=== PATIENT | female | born 1955 | race Caucasian/White ===

== ENCOUNTER 2020-06-08 10:35 | Inpatient (IN) ==
--- NOTE | 2020-05-12 15:52 | PAT Medication Instructions ---
Medication Instructions Date of Service May 12, 2020 Home Medications Ca carb-D3-mag [id number] [Caltrate + D3 Plus Minerals] 1 tab PO QAM atorvastatin [Lipitor] 20 mg PO PM celecoxib [Celebrex] 200 mg PO QAM diltiazem HCl [Cardizem CD] 180 mg PO QAM duloxetine [Cymbalta] 120 mg PO QAM gabapentin 300 mg PO TID iron 159 mg PO BID lorazepam [Ativan] 0.5 mg PO BID magnesium 500 mg PO BID multivitamin [One A Day] 1 tab PO QAM omeprazole 40 mg PO QAM rivaroxaban [Xarelto] 20 mg PO PM sumatriptan succinate [Imitrex] 100 mg PO DAILY PRN tizanidine [Zanaflex] 4 mg PO TID vitamin B complex 100 tab PO BID zolpidem [Ambien] 10 mg PO HS ASK your surgeon for instructions celecoxib [Celebrex] 200 mg PO QAM ASK your prescriber and surgeon rivaroxaban [Xarelto] 20 mg PO PM DO NOT take the morning of surgery tizanidine [Zanaflex] 4 mg PO TID vitamin B complex 100 tab PO BID magnesium 500 mg PO BID multivitamin [One A Day] 1 tab PO QAM iron 159 mg PO BID Ca carb-D3-mag [id number] [Caltrate + D3 Plus Minerals] 1 tab PO QAM Take morning of surgery With a small sip of water, OTHERWISE NOTHING TO EAT OR DRINK AFTER MIDNIGHT: sumatriptan succinate [Imitrex] 100 mg PO DAILY PRN (if needed) omeprazole 40 mg PO QAM lorazepam [Ativan] 0.5 mg PO BID gabapentin 300 mg PO TID diltiazem HCl [Cardizem CD] 180 mg PO QAM duloxetine [Cymbalta] 120 mg PO QAM Take evening before surgery atorvastatin [Lipitor] 20 mg PO PM gabapentin 300 mg PO TID iron 159 mg PO BID lorazepam [Ativan] 0.5 mg PO BID magnesium 500 mg PO BID sumatriptan succinate [Imitrex] 100 mg PO DAILY PRN (if needed) tizanidine [Zanaflex] 4 mg PO TID vitamin B complex 100 tab PO BID zolpidem [Ambien] 10 mg PO HS Other Notes If you have any questions please call us at [phone] or [phone] or [phone] or [phone]
--- NOTE | 2020-05-16 13:33 | PAT Medication Instructions ---
Medication Instructions Date of Service May 16, 2020 Home Medications Ca carb-D3-mag [id number] [Caltrate + D3 Plus Minerals] 1 tab PO QAM atorvastatin [Lipitor] 20 mg PO PM celecoxib [Celebrex] 200 mg PO QAM diltiazem HCl [Cardizem CD] 180 mg PO QAM duloxetine [Cymbalta] 120 mg PO QAM gabapentin 300 mg PO TID iron 159 mg PO BID lorazepam [Ativan] 0.5 mg PO BID magnesium 500 mg PO BID multivitamin [One A Day] 1 tab PO QAM omeprazole 40 mg PO QAM rivaroxaban [Xarelto] 20 mg PO PM sumatriptan succinate [Imitrex] 100 mg PO DAILY PRN tizanidine [Zanaflex] 4 mg PO TID vitamin B complex 100 tab PO BID zolpidem [Ambien] 10 mg PO HS ASK your surgeon for instructions celecoxib [Celebrex] 200 mg PO QAM ASK your prescriber and surgeon rivaroxaban [Xarelto] 20 mg PO PM DO NOT take the morning of surgery Ca carb-D3-mag [id number]-Zn [Caltrate + D3 Plus Minerals] 1 tab PO QAM iron 159 mg PO BID magnesium 500 mg PO BID multivitamin [One A Day] 1 tab PO QAM tizanidine [Zanaflex] 4 mg PO TID vitamin B complex 100 tab PO BID Take morning of surgery With a small sip of water, OTHERWISE NOTHING TO EAT OR DRINK AFTER MIDNIGHT: diltiazem HCl [Cardizem CD] 180 mg PO QAM duloxetine [Cymbalta] 120 mg PO QAM gabapentin 300 mg PO TID lorazepam [Ativan] 0.5 mg PO BID omeprazole 40 mg PO QAM sumatriptan succinate [Imitrex] 100 mg PO DAILY PRN (if needed) Take evening before surgery atorvastatin [Lipitor] 20 mg PO PM gabapentin 300 mg PO TID iron 159 mg PO BID lorazepam [Ativan] 0.5 mg PO BID magnesium 500 mg PO BID sumatriptan succinate [Imitrex] 100 mg PO DAILY PRN (if needed) tizanidine [Zanaflex] 4 mg PO TID vitamin B complex 100 tab PO BID zolpidem [Ambien] 10 mg PO HS Other Notes If you have any questions please call us at [phone] or [phone] or [phone] or [phone]
--- NOTE | 2020-05-17 13:04 | Anesthesiology Consultation ---
Date of Service May 17, 2020 Assessment & Plan (1) Encounter for pre-operative examination: Chart Review Chart Review: Pending: Refer to Additional Notes / Consult section (UA, surgeon ordered PCP and cardio clearances and preop Covid testing results ) and Patient seen in Pre Admission Testing - Awaiting UA (pt could not void at PAT appt)- was given orders and supplies and will take urine - [facility] [place] - Awaiting surgeon ordered PCP (05/18) and cardio (05/25) clearance -Did call surgeon's office re: spinal cord stimulator removal in addition to lumbar fusion- per surgeon's office- pt will be getting spinal cord stimulator removal in additional to lumbar fusion surgery. Per PAT appt on 05/17/20, pt denies recent travel. No known Covid positive contacts or Covid related symptoms. Pt did have Covid on 12/20/19- had cough and congestion- symptoms have since resolved. Preop Covid testing scheduled 06/01/20 at [facility] [place]= will await results. Educated on importance of self quarantining, social distancing and wearing mask in public both for the patient and household contacts. Will be fully vaccinated by time of surgery. Teaching & Discussion Pre-Anesthesia Teaching/Discussion Notes: Instructed NPO after midnight before surgery,except medications with 15 cc of water. Medication instructions provided according to the [facility] guidelines. History Surgery Operation Date: 06/08/20 07:45 Proposed Procedures p L3-L5 Decompression and Fusion, Spinal Cord Monitoring - Francisco Oates, Height/Weight Height: 5 ft 2 in Weight: 87.9 kg Allergies Allergy/AdvReac Type Severity Reaction Status Date / Time No Known Allergies Allergy Verified 05/02/20 08:02 Medications Home Medications Medication Instructions Recorded Confirmed Last Taken Ca carb-D3-mag [id number] 1 tab PO QAM 05/02/20 05/02/20 Unknown [Caltrate + D3 Plus Minerals] atorvastatin [Lipitor] 20 mg PO PM 05/02/20 05/02/20 Unknown celecoxib [Celebrex] 200 mg PO QAM 05/02/20 05/02/20 Unknown diltiazem HCl [Cardizem CD] 180 mg PO QAM 05/02/20 05/02/20 Unknown duloxetine [Cymbalta] 120 mg PO QAM 05/02/20 05/02/20 Unknown gabapentin 300 mg PO TID 05/02/20 05/02/20 Unknown iron 159 mg PO BID 05/02/20 05/02/20 Unknown lorazepam [Ativan] 0.5 mg PO BID 05/02/20 05/02/20 Unknown magnesium 500 mg PO BID 05/02/20 05/02/20 Unknown multivitamin [One A Day] 1 tab PO QAM 05/02/20 05/02/20 Unknown omeprazole 40 mg PO QAM 05/02/20 05/02/20 Unknown rivaroxaban [Xarelto] 20 mg PO PM 05/02/20 05/02/20 Unknown sumatriptan succinate [Imitrex] 100 mg PO DAILY PRN 05/02/20 05/02/20 Unknown tizanidine [Zanaflex] 4 mg PO TID 05/02/20 05/02/20 Unknown vitamin B complex 100 tab PO BID 05/02/20 05/02/20 Unknown zolpidem [Ambien] 10 mg PO HS 05/02/20 05/02/20 Unknown Past Medical History Medical History Anxiety Stable with med Atrial fibrillation Dx'ed 1994> follows with Dr. Valentino Brooke Cardiology> Xarelto/Cardizem, no cardioversions - usually brought on by dehydration Chronic back pain Degenerative disc disease GERD (gastroesophageal reflux disease) Well controlled and stable History of COVID-19 DEC 20, 2019 Hyperlipidemia Migraine Nausea and vomiting after administration of anesthetic agent Osteoarthritis Spinal cord stimulator status advised to bring control Exercise / Class Metabolic Activity II 4-5 Yardwork/Stairs/Walk up hill (one flight of stairs - no chest pain or SOB- stays active with etouches classes- uses chair ) Past Family History Family History Mother Diabetes Past Surgical History Surgical History History of adenoidectomy History of bilateral tubal ligation History of carpal tunnel release bilat History of cholecystectomy History of colonoscopy History of dilatation and curettage History of esophagogastroduodenoscopy (EGD) History of laparoscopy History of tonsillectomy History of tooth extraction Hx of bladder repair surgery bladder sling Hx of thumb surgery left for arthritis Past Anesthesia History No Hx of Anesthesia Complications (with exception to PONV) and No Family Hx of Anesthesia Complications (only PONV) History of PONV No Hx of Motion Sickness and History of PONV (relieved with IV anti nausea medi cation ) Social History Smoking Status: Never smoker Do You Dip or Chew Tobacco: No Hx Alcohol Use: No Hx Substance Use: No substance use type: does not use Review of Systems Hx of snoring- occ- no hx of sleep study S/p blood transfusion- around 2017- s/p laparoscopy Patient denies chest pain, shortness of breath, dyspnea on exertion, cough, wheezing, palpitations. No hx of seizures, stroke, [place]. No hx of blood clots. Physical Exam Vital Signs VITALS BP 135/84 P 88 TEMP 98.6 SP02 98% RESP 16 Constitutional no acute distress ENMT Mouth: no TMJ clicking Thyromental Distance: > or= 3.5 Finger Breadths (3.5) Mallampati Class: III Partial top upper plate Neck neck extension not limited Respiratory normal respiratory effort; no respiratory distress Auscultation: lungs clear to auscultation bilaterally; no wheezes Cardiovascular Rate/Rhythm: regular rate and regular rhythm Heart Sounds: no murmur Vessels: no carotid bruit Musculoskeletal Spine: + pain with cervical ROM (mild ) Extremities: extremities normal to inspection Psychiatric Orientation: alert Testing Laboratory Results 05/17/20 13:13 05/17/20 13:13 PT 10.8 Seconds (9.0-12.0) 05/17/20 13:13 INR 1.1 (0.9-1.1) 05/17/20 13:13 APTT 27.1 Seconds (21.0-31.0) 05/17/20 13:13 Blood Type A Positive 05/17/20 13:13 Antibody Screen NEGATIVE 05/17/20 13:13 Electrocardiogram Date: 05/17/20 Findings: + NSR @ (84bpm ) Normal EKG per cardio. Chest X-Ray Date: 05/17/20 Findings: + NAD Spinal stimulator leads overlie the midthoracic spine.
--- NOTE | 2020-05-17 14:11 | XRay Report ---
XR chest Pre-admission PA/Lat HISTORY: 65 years-old Female pat preoperative exam. No acute chest complaints COMPARISON: None TECHNIQUE: PA and lateral views of the chest FINDINGS: Cardiomediastinal and hilar silhouettes are within normal limits. No pneumothorax, pleural effusion, airspace consolidation or overt pulmonary edema. Spinal stimulator leads overlie the midthoracic spin e. Surgical clips of the right upper quadrant abdomen. IMPRESSION: No acute process. ACT 112: Negative or not required by law. The above report was generated using voice recognition software. It may contain grammatical, syntax o r spelling errors. Electronically signed by: Jorge Moseley M.D. 05/17/2020 2:10 PM
[2020-05-17 15:04] LABS: Basophils # (auto) 0.01 K/uL (0-0.2); Basophils % (auto) 0.1 %; Eosinophils # (auto) 0.01 K/uL (0-0.5); Eosinophils % (auto) 0.1 %; Hematocrit (blood only) 39.7 % (37-47); Hemoglobin 12.4 g/dL (12.0-16.0); Immature Granulocytes # (auto) 0.04 K/uL (0.00-0.02); Immature Granulocytes % (auto) 0.5 %; Lymphocytes % (auto) 6.9 %; Mean Corpuscular Hemoglobin 28.4 pg (25-34); Mean Corpuscular Hgb Conc 31.2 g/dL (32-36); Mean Corpuscular Volume 91.1 fL (80-100); Mean Platelet Volume 10.7 fL (7.4-10.4); Monocytes # (auto) 0.23 K/uL (0.11-0.59); Monocytes % (auto) 2.6 %; Neutrophils # (auto) 7.86 K/uL (1.4-6.5); Neutrophils % (auto) 89.8 %; Platelet Count 265 K/uL (130-400); RDW Coefficient of Variation 18.3 % (11.5-14.5); RDW Standard Deviation 61.1 fL (36.4-46.3); Red Blood Count 4.36 M/uL (4.2-5.4); White Blood Count 8.75 K/uL (4.8-10.8)
[2020-05-17 15:19] LABS: INR 1.1 (0.9-1.1); Partial Thromboplastin Time 27.1 Seconds (21.0-31.0); Prothrombin Time 10.8 Seconds (9.0-12.0)
[2020-05-17 15:29] LABS: BUN Creatinine Ratio 20.7 (10-20); Calcium 9.8 mg/dl (8.5-10.1); Creatinine Clr Calc Pharmacy 63.3 ml/min; Est GFR (African American) 77.2; Est GFR (Non-African American) 66.6; Potassium 4.6 mmol/L (3.5-5.1)
--- NOTE | 2020-05-18 14:27 | Electrocardiogram Report ---
Test Reason : Blood Pressure : / mmHG Vent. Rate : 084 BPM Atrial Rate : 084 BPM P-R Int : 140 ms QRS Dur : 084 ms QT Int : 394 ms P-R-T Axes : 060 040 058 degrees QTc Int : 465 ms Normal sinus rhythm Normal ECG No previous ECGs available Confirmed by Beni Man ([id number]) on 05/18/2020 2:26:58 PM Referred By: Francisco Oates Confirmed By:Beni Man
[~2020-06-08 10:35] MED LIST: ACETAMINOPHEN 500 MG TAB PO SCH; CeleBREX 200 MG CAP PO SCH; GABAPENTIN 300 MG CAP PO SCH; LR 15ML/HR IV SCH; ceFAZolin 2000MG 2,000 MG/15 ML SYR IV SCH
[2020-06-08] MEDS ORDERED: fentaNYL citrate 100 MCG/2 ML VIAL ONE ×2 (10:37→12:33)
[2020-06-08] MEDS ORDERED: MIDAZOLAM HCL 1 MG/ML 2ML VIAL ONE (10:37)
--- NOTE | 2020-06-08 11:49 | History & Physical Bridge Note ---
Date of Service June 08, 2020 History & Physical Bridge Note I have examined the patient, reviewed the History & Physical and in the interval since the performance of the History & Physical I have noted the following changes of clinical significance: no changes noted L3 L5 decompression fusion possible L5-S1, possible spinal cord stimulator removal
--- NOTE | 2020-06-08 11:50 | History & Physical Report ---
Date of Service June 08, 2020 Assessment & Plan (1) Neurogenic claudication due to lumbar spinal stenosis: Admission and Anticipated Discharge Date Admission Date: L3-L5 decompression fusion, possible L5-S1, possible spinal cord stimulator removal History of Present Illness Chief Complaint: Back and bilateral leg pain Primary Care Provider: Pari Freed DO This is a 65-year-old female who presents with chronic persistent back and bilateral leg pain. Failing course of nonoperative care she is here for surgical invention. Allergies Allergy/AdvReac Type Severity Reaction Status Date / Time No Known Allergies Allergy Verified 06/08/20 11:28 Home Medications Medication Instructions Recorded Confirmed Type Ca carb-D3-mag [id number] 1 tab PO QAM 05/02/20 06/08/20 History [Caltrate + D3 Plus Minerals] atorvastatin [Lipitor] 20 mg PO PM 05/02/20 06/08/20 History celecoxib [Celebrex] 200 mg PO QAM 05/02/20 06/08/20 History diltiazem HCl [Cardizem CD] 240 mg PO QAM 05/02/20 06/08/20 History duloxetine [Cymbalta] 120 mg PO QAM 05/02/20 05/02/20 History gabapentin 300 mg PO TID 05/02/20 05/02/20 History iron 65 mg PO BID 05/02/20 06/08/20 History lorazepam [Ativan] 0.5 mg PO BID 05/02/20 06/08/20 History magnesium 500 mg PO BID 05/02/20 06/08/20 History multivitamin [One A Day] 1 tab PO QAM 05/02/20 06/08/20 History omeprazole 40 mg PO QAM 05/02/20 05/02/20 History rivaroxaban [Xarelto] 20 mg PO PM 05/02/20 06/08/20 History sumatriptan succinate [Imitrex] 100 mg PO DAILY PRN 05/02/20 06/08/20 History tizanidine [Zanaflex] 4 mg PO TID 05/02/20 06/08/20 History vitamin B complex 100 tab PO BID 05/02/20 06/08/20 History zolpidem [Ambien] 10 mg PO HS 05/02/20 06/08/20 History Past Med/Surg History Medical History (Updated 06/08/20 @ 11:50 by Francisco Oates, ) Anxiety Stable with med Atrial fibrillation Dx'ed 1994> follows with Dr. Valentino Brooke Cardiology> Xarelto/Cardizem, no cardioversions - usually brought on by dehydration Chronic back pain Degenerative disc disease GERD (gastroesophageal reflux disease) Well controlled and stable History of COVID-19 DEC 20, 2019 Hyperlipidemia Hypertension Migraine Osteoarthritis Surgical History History of adenoidectomy History of bilateral tubal ligation History of carpal tunnel release bilat History of cholecystectomy History of colonoscopy History of dilatation and curettage History of esophagogastroduodenoscopy (EGD) History of laparoscopy History of tonsillectomy History of tooth extraction Hx of bladder repair surgery bladder sling Hx of thumb surgery left for arthritis Nausea and vomiting after administration of anesthetic agent Spinal cord stimulator status advised to bring control Family History Mother Diabetes Social History Smoking Status: Never smoker 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); Do You Dip or Chew Tobacco: No; Tobacco Cessation Education Requested by Patient: No Hx Alcohol Use: No Hx Substance Use: No Preferred Language: Chilean Communication Ability: Effective Key Account Director Required: No Beliefs That Will Affect Care: None Current Living Situation: Spouse Other Information That Helps Us Care for You: No Feels Safe at Home: Yes Safety Concerns: Feels Safe At This Time Assistive Devices: Glasses and Hearing Aid - Bilateral Physical Exam Physical Exam: Patient is alert and oriented Heart regular in rhythm Lungs clear to auscultation
[2020-06-08] MEDS ORDERED: BACITRACIN INJ 50,000 UNIT VIAL ONE (12:02)
[2020-06-08] MEDS ORDERED: BUPIVACAINE/EPINEPHRINE 0.5% MPF 1:200,000 30 ML VIAL ONE ×2 (12:02→12:43)
[2020-06-08] MEDS ORDERED: SCOPOLAMINE 1 MG TDSY TD ONE (12:14)
[2020-06-08] MEDS ORDERED: fentaNYL citrate 100 MCG/2 ML VIAL IV PRN (12:18)
[2020-06-08] MEDS ORDERED: ONDANSETRON INJ 2 MG/ML 2 ML VIAL IV PRN (12:18)
[2020-06-08] MEDS ORDERED: ePHEDrine sulfate 50 MG/ML AMP IV PRN (12:18)
[2020-06-08] MEDS ORDERED: ATROPINE SULFATE 0.1 MG/ML 10ML SYR IV PRN (12:18)
[2020-06-08] MEDS ORDERED: PROPOFOL IV EMULSION 10 MG/ML 20 ML VIAL IV ONE (13:06)
[2020-06-08] MEDS ORDERED: LIDOCAINE HCL 2% 2 ML VIAL/AMP(20MG/ML) INFIL ONE (13:06)
[2020-06-08] MEDS ORDERED: ROCURONIUM BROMIDE 10 MG/ML 5 ML VIAL IV ONE (13:06)
[2020-06-08] MEDS ORDERED: DEXAMETHASONE SOD INJ 4 MG/ML VIAL ONE (13:06)
[2020-06-08] MEDS ORDERED: ONDANSETRON INJ 2 MG/ML 2 ML VIAL ONE (13:06)
[2020-06-08] MEDS ORDERED: PHENYLEPHRINE 100MCG/ML 5ML SYR ONE (13:19)
[2020-06-08] MEDS ORDERED: NEOSTIGMINE METHYLSULFATE 1 MG/ML 10ML VIAL ONE (13:29)
[2020-06-08] MEDS ORDERED: GLYCOPYRROLATE 0.2 MG/ML VIAL ONE (13:29)
[2020-06-08] MEDS ORDERED: HYDROmorphone INJ 2 MG/ML SYR/VIAL ONE (13:36)
[2020-06-08] MEDS ORDERED: FLOSEAL HEMOSTATIC MATRIX 10ML TOP ONE ×2 (13:50→14:34)
--- NOTE | 2020-06-08 15:06 | Operative Report ---
Post Operative Report Pre & Post Diagnosis Operation Date: 06/08/20 12:15 Pre-Op Diagnosis: Spinal stenosis with neurogenic claudication Nonfunctioning dorsal column stimulator Post-Op Diagnosis: Same I identified the patient and participated in the time-out.: Yes Procedure Operation Date: 06/08/20 12:15 Actual Procedures #1 removal of dorsal column stimulator battery and paddle. #2 revision decompression T10-T11 L3-L4 L4-L5 L5-S1. #3 posterior spinal fusion L3-4, L4-5 and L5-S1. #4 placement posterior segmental instrumentation L3-S1. #5 interbo dy fusion L4-5 L5-S1. #6 placement peek cage 10 x 22 mm at L4-5 and 12 x 22 mm at L5-S1. #7 placement of locally harvested morselized autograft in the posterior lateral gutters. #8 placement of infuse collagen sponge, master graft in the posterior lateral gutters and I factor interbody space. Surgeon Francisco Oates, DO [employer] Mariely Bullock Estimated Blood Loss 250 Findings See Below Patient is 5 feet 2 inches tall weighing over 88 kg with a BMI in excess of 35. The patient's body habitus did contribute to significant technical difficulty requiring her deepest retractors longus instruments in order to perform her procedure. This at least 50% increase to the operative time. Specimens None Indications This is a 65-year-old female presents with above-mentioned diagnosis after failing course of nonoperative care is here for the above-mentioned procedure. Description of Procedure Patient was met with identified informed consent obtained. Patient was then taken to the operative suite underwent intubation. At this time the right lower quadrant of the abdomen was prepped and draped in a sterile fashion. I then created approximately 4 cm incision directly over the battery for dorsal column stimulator. Sharp dissection was performed down to the battery. The battery was removed without difficulty and the leads cut loose. The scar was excised to create clean margins and the pocket was closed with subcutaneous Vicryl and 4 Monocryl for final skin closure. Steri-Strip sterile dressing was placed. Patient was then placed in a prone position the [facility] top Paulino frame. All bony prominences well-padded eyes inspected to ensure no external pressure placed upon them. This point the lumbar spine was prepped draped in a sterile fashion. Sharp dissection with the assistance of Bovie cautery performed down to and exposing the remaining lamina and transverse processes of L3-L4-L5 and the sacral ala bilaterally. From caudal cephalad fashion revision medial facetectomies and foraminotomies were performed at L3-4 L4-5 L5-S1. I then placed pedicle screws at L3-4 L5 and S1 levels bilaterally. The proper sized erika was then placed. By way of a transforaminal approach on the left complete discectomy of L5-S1 was performed endplates curetted to subcortically bone and a 12 x 22 mm peek cage filled with I factor tapped in position. Then proceeded L4-L5 [address] of a transforaminal portion left complete discectomy performed endplates curetted to subcortically bone and a 10 x 22 mm peek cage filled with I factor tapped in position. The rods were then locked into final position bilaterally. Transverse processes of L3-L4-L5 and sacral ala burred to subcortical bleeding bone. Infuse collagen sponges and master graft local graft was placed in the posterior gutters. 15 round MILTON drain inserted. Incision was then closed with 1 Vicryl fascia 2-0 Vicryl subcutaneously and 4 Monocryl for final skin closure. Another incision was then placed over the T10-T11 levels of the thoracic spine. Sharp dissection with assisted Bovie cartilage from down to and exposing the laminotomy site for the dorsolumbar stimulator leads. The leads were identified dissected through the scar tissue. Then had to perform a revision decompression of T10 to adequately loosen the scarred and dorsal column stimulator paddle. Once this was performed the paddle was removed without difficulty. The incision was then copiously irrigated and closed with 1 Vicryl the fascia 2-0 Vicryl subcutaneously and 4 Monocryl for final skin closure. Steri-Strip sterile dressings placed. Patient was then awakened taken to PACU stable condition. Please note spinal cord monitoring was utilized at the procedure no changes noted. Lastly Mariely Bullock was present at the entire surgery involved the patient positioning complex portions of the surgery and final skin closure. I attest to the content of the Intraoperative Record and any orders documented therein. Any exceptions are noted below.
--- NOTE | 2020-06-08 15:08 | Fluoroscopy Report ---
FL lumbar spine 2-3V CLINICAL HISTORY: L3-5 DECOMPRESSION/FUSION/INTERBODY COMPARISON STUDY: None FLUOROSCOPY TIME: 31 seconds. NUMBER OF FLUOROSCOPIC IMAGES: 3 FINDINGS: Intraoperative fluoroscopic spot images reveal postsurgical changes of L4-5 and L5-S1 disce ctomies interbody fusions. There are postsurgical changes of an L3-S1 spinal decompression and fusion with posterior pedicle screws and adjoining spinal rods. IMPRESSION: Intraoperative fluoroscopic spot images demonstrating postsurgical changes of an L3-S1 s karena decompression and fusion ACT 112: Negative or not required by law. Electronically signed by: Bud Soliman M.D. 06/08/2020 3:07 PM
[2020-06-08] MEDS ORDERED: LABETALOL HCL IV 5 MG/ML 20ML IV ONE (15:48)
[2020-06-08] MEDS ORDERED: LABETALOL HCL IV 5 MG/ML 20ML IV STA (15:49)
--- NOTE | 2020-06-08 16:18 | Anesthesiology Progress Note ---
Date of Service June 08, 2020 Anesthesia Post Procedure Vital Signs Vital Signs: Temp Pulse Pulse Resp BP Pulse Ox 06/08/20 16:15 36.2 C L 79 14 144/72 H 97 06/08/20 16:05 77 16 152/71 H 98 06/08/20 15:55 93 H 16 142/61 H 98 06/08/20 15:45 80 14 142/61 H 98 06/08/20 15:35 88 16 199/85 H 96 06/08/20 15:29 36.4 C L 96 H 16 213/100 H 96 06/08/20 11:34 37 C 92 H 18 131/86 98 Pain Intensity Bilateral Lower Back: Pain Intensity: 3 Transfer of Care Handoff Completed per policy Notes Mental Status: alert / awake / arousable Patient Amnestic to Procedure: Yes Nausea / Vomiting: adequately controlled Pain: adequately controlled Airway Patency, RR, SpO2: stable & adequate BP & HR: stable & adequate Hydration State: stable & adequate Anesthetic Complications: no major complications apparent and Pt Satisfied with anesthetic care
[2020-06-08] MEDS ORDERED: bisacodyL 10 MG SUPP PR PRN (16:54)
[2020-06-08] MEDS ORDERED: DO NOT ADMINISTER FLU VACCINE PRN (16:54)
[2020-06-08] MEDS ORDERED: HYDROmorphone INJ 0.5 MG/0.5 ML SYR IV PRN (16:54)
[2020-06-08] MEDS ORDERED: traMADol HCL 50 MG TABLET PO PRN (16:54)
[2020-06-08] MEDS ORDERED: SOD PHOSPHATE/SOD BIPHOSPHATE ENEMA 132 ML BTL PR PRN (16:54)
[2020-06-08] MEDS ORDERED: FAMOTIDINE 20 MG TAB PO PRN (16:54)
[2020-06-08] MEDS ORDERED: diphenhydrAMINE Capsule 25 MG CAP PO PRN (16:54)
[2020-06-08] MEDS ORDERED: NALOXONE HCL 0.4 MG/1 ML VIAL/CARP IV PRN (16:54)
[2020-06-08] MEDS ORDERED: ALUMINUM/MAGNESIUM SUSP 30 ML UDC PO PRN (16:54)
[2020-06-08] MEDS ORDERED: LORazepam 0.5 MG TAB PO PRN (16:54)
[2020-06-08] MEDS ORDERED: ACETAMINOPHEN 500 MG TAB PO PRN (16:54)
[2020-06-08] MEDS ORDERED: hydrOXYzine HCl 25 MG TAB PO PRN (16:54)
[2020-06-08] MEDS ORDERED: MAGNESIUM HYDROXIDE SUSP 30 ML UDC PO PRN (16:54)
[2020-06-08] MEDS ORDERED: ONDANSETRON 4 MG OD TAB PO PRN (16:54)
[2020-06-08] MEDS ORDERED: ACETAMINOPHEN 1,000 MG/100 ML VIAL IV PRN (16:54)
[2020-06-08] MEDS ORDERED: LORazepam 0.5 MG/1 ML VIAL IV PRN (16:54)
[2020-06-08] MEDS ORDERED: DO NOT ADMINISTER PNEUMOCOCCAL VACCINE PRN (16:54)
[2020-06-08] MEDS ORDERED: SUMAtriptan succinate 100 MG TAB PO PRN (16:54)
[2020-06-08] MEDS ORDERED: LACTATED RINGER'S 1,000 ML IV SCH (16:54)
[2020-06-08] MEDS ORDERED: METOCLOPRAMIDE HCL INJ 5 MG/ML 2 ML VIAL IV PRN (16:54)
--- NOTE | 2020-06-08 17:41 | Consultation ---
Date of Consultation June 08, 2020 Assessment & Plan (1) S/P spinal surgery: Post op day# 0 S/P removal stimulator, decompression T10-S1 and fusion L3- S1 by Dr Oates EBL# 250ml -pain management per ortho -wound management per ortho -PT/OT as appropriate -DVT prophylaxis per ortho -incentive spirometry -monitor H&H for acute blood loss anemia; pre-op Hgb: 12 (2) Atrial fibrillation: On Xarelto CHADVAS:2 -Xarelto has been on hold for 7 days. Cardiology recommends resuming as soon as possible -Resume Xarelto per ortho recommendations -Continue diltiazem (3) Hypertension: Stable -Continue diltiazem (4) Hyperlipidemia: -Continue atorvastatin (5) Anxiety: -Continue duloxetine (6) GERD (gastroesophageal reflux disease): -Continue PPI DVT Prophylaxis -SCDs Disposition per primary service. Follows with Dr Freed in [facility] for routine care Pt was seen and care coordinated with Dr Che. See addendum Thank you for this consultation. We will follow the patient with you during their hospital stay. Supervising Physician Co-Signing Physician Notes Pt was sen and examined. Agreed with Lissette MCCARTHY exam, assessment and plan. 65 y/o F with PMH atrial fibrillation on Xarelto, HTN, HLD, anxiety, GERD, migraine, failed conservative management. s/p removal stimulator, decompression T10-S1 and fusion L3-S1 performed by Dr. Oates today. No post complication. Continue pain control. Incentive spirometry. Will monitor Hgb. Resume Xarelto once bleeding control. PT/OT eval and Fall precaution. MD Yane History of Present Illness Requesting Physician: Dr Oates Reason for Consultation: Post op medical management Attending Physician: Francisco Oates DO History of Present Illness Pt is 65 y/o F with PMH atrial fibrillation on Xarelto, HTN, HLD, anxiety, GERD, migraine seen in medical consultation s/p removal stimulator, decompression T10-S1 and fusion L3-S1 today by Dr Oates. Post op pt still feels "groggy". Denies any complaints currently. Thinks pain controlled at this time. Denies CP, SOB, palpitations, extremity pain. Denies fever/chills, N/V/D, CARO, dizziness, abdominal pain, paresthesias, urinary symptoms. Allergies Allergy/AdvReac Type Severity Reaction Status Date / Time No Known Allergies Allergy Verified 06/08/20 11:28 Home Medications Medication Instructions Recorded Confirmed Type Caltrate + D3 Plus Minerals 1 tab PO QAM 05/02/20 06/08/20 History Xarelto 20 mg PO PM 05/02/20 06/08/20 History atorvastatin [Lipitor] 20 mg PO PM 05/02/20 06/08/20 History celecoxib [Celebrex] 200 mg PO QAM 05/02/20 06/08/20 History diltiazem HCl [Cardizem CD] 240 mg PO QAM 05/02/20 06/08/20 History duloxetine [Cymbalta] 120 mg PO QAM 05/02/20 05/02/20 History gabapentin 300 mg PO TID 05/02/20 05/02/20 History iron 65 mg PO BID 05/02/20 06/08/20 History lorazepam [Ativan] 0.5 mg PO BID 05/02/20 06/08/20 History magnesium 500 mg PO BID 05/02/20 06/08/20 History multivitamin 1 tab PO QAM 05/02/20 06/08/20 History omeprazole 40 mg PO QAM 05/02/20 05/02/20 History sumatriptan succinate [Imitrex] 100 mg PO DAILY PRN 05/02/20 06/08/20 History tizanidine [Zanaflex] 4 mg PO TID 05/02/20 06/08/20 History vitamin B complex 100 tab PO BID 05/02/20 06/08/20 History zolpidem [Ambien] 10 mg PO HS 05/02/20 06/08/20 History oxycodone 5 mg PO Q6H PRN #30 tab 06/09/20 Rx tramadol 50 mg PO Q6H PRN #30 tab 06/09/20 Rx ciprofloxacin HCl [Cipro] 250 mg PO BID 3 Days #6 tab 06/12/20 Rx Patient History Medical History Anxiety Stable with med Atrial fibrillation Dx'ed 1994> follows with Dr. Valentino Brooke Cardiology> Xarelto/Cardizem, no cardioversions - usually brought on by dehydration Chronic back pain Degenerative disc disease GERD (gastroesophageal reflux disease) Well controlled and stable History of COVID-19 DEC 20, 2019 Hyperlipidemia Hypertension Migraine Osteoarthritis Surgical History History of adenoidectomy History of bilateral tubal ligation History of carpal tunnel release bilat History of cholecystectomy History of colonoscopy History of dilatation and curettage History of esophagogastroduodenoscopy (EGD) History of laparoscopy History of tonsillectomy History of tooth extraction Hx of bladder repair surgery bladder sling Hx of thumb surgery left for arthritis Nausea and vomiting after administration of anesthetic agent Spinal cord stimulator status advised to bring control Family History Mother Diabetes Social History Smoking Status: Never smoker 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); Do You Dip or Chew Tobacco: No; Tobacco Cessation Education Requested by Patient: No Hx Alcohol Use: No Hx Substance Use: No Preferred Language: Portuguese Communication Ability: Effective [employer] Agent Required: No Beliefs That Will Affect Care: None Current Living Situation: Spouse Other Information That Helps Us Care for You: No Feels Safe at Home: Yes Safety Concerns: Feels Safe At This Time Assistive Devices: Walker Review of Systems Review of Systems: All systems reviewed & are unremarkable except as noted in HPI & below Physical Exam Physical Exam: General: no distress, WDWN Head: normocephalic, atraumatic Eyes: conjunctiva non-injected, anicteric ENT: normal inspection external ears, nose, mucous membranes moist Neck: supple, trachea midline Lungs: clear, no respiratory distress, no wheezing/rhonchi/rales CV: RRR, no pretibial edema Abd: normal BS, soft, non-tender Back: surgical dressing in place, MILTON drain in place with serosanguineous drainage Ext: no cyanosis, no calf tenderness, pedal pushes and pulls intact bilaterally, distal pulses intact bilaterally Neuro: Drowsy, awakens to name. oriented x 3, no focal deficits noted Skin: warm, dry Results & Data ([facility]) Vital Signs (Past 12 Hours) Vital Signs Temp Pulse Pulse Pulse Resp BP Pulse Ox 06/08/20 17:39 36.7 C 88 16 136/77 97 06/08/20 17:10 36.7 C 84 16 144/84 H 97 06/08/20 16:40 36.6 C 84 14 169/89 H 96 06/08/20 16:25 36.2 C L 77 14 166/72 H 96 06/08/20 16:15 36.2 C L 79 14 144/72 H 97 06/08/20 16:05 77 16 152/71 H 98 06/08/20 15:55 93 H 16 142/61 H 98 06/08/20 15:45 80 14 142/61 H 98 06/08/20 15:35 88 16 199/85 H 96 06/08/20 15:29 36.4 C L 96 H 16 213/100 H 96 06/08/20 11:34 37 C 92 H 18 131/86 98
[2020-06-08] MEDS ORDERED: KETOROLAC TROMETHAMINE 15 MG/ML VIAL IV SCH (18:00)
[2020-06-08] MEDS: ceFAZolin 2000MG 2,000 MG/15 ML SYR IV SCH (20:38)
[2020-06-08] MEDS: ZOLPIDEM TARTRATE 10 MG TAB PO SCH (20:39)
[2020-06-08] MEDS: LORazepam 0.5 MG TAB PO SCH (20:40)
[2020-06-08] MEDS: GABAPENTIN 300 MG CAP PO SCH (20:40)
[2020-06-08] MEDS: tiZANidine HCL 4 MG TABLET PO SCH (20:41)
[2020-06-08] MEDS: DOCUSATE SODIUM/SENNA 50/8.6MG TAB PO SCH (20:42)
[2020-06-08] MEDS: VITAMIN B COMPLEX TAB PO SCH (20:42)
[2020-06-08] MEDS: FERROUS SULFATE 325 MG TAB PO SCH (20:42)
[2020-06-08] MEDS: MAGNESIUM OXIDE 400 MG TAB PO SCH (20:42)
[2020-06-08] MEDS: ATORVASTATIN 20 MG TAB PO SCH (20:42)
[2020-06-08] MEDS: ONDANSETRON INJ 2 MG/ML 2 ML VIAL IV PRN (21:49)
--- NOTE | 2020-06-08 22:08 | Communication Note ---
Date of Service: June 08, 2020 Made aware by RN of headache, nausea symptoms, possible migraine attack as per patient as per RN. SBP 170s. AP Uncontrolled hypertension Analgesia, antiemetics as needed Decrease maintenance IV fluid rate. Hold Toradol given uncontrolled BP. Will relay to AM provider.
[2020-06-08] MEDS: LACTATED RINGER'S 1,000 ML IV ONE ×2 (22:18→22:20)
[2020-06-08] MEDS ORDERED: PROMETHAZINE HCL 12.5 MG in SODIUM CHLORIDE 0.9% 50 ML IV STA (22:44)
[2020-06-08] MEDS: PROMETHAZINE HCL 12.5 MG in SODIUM CHLORIDE 0.9% 50 ML IV PRN (23:35)
[2020-06-09] MEDS: oxyCODONE HCL IR 5 MG TAB (IMMEDIATE RELEASE) PO PRN (00:38)
[2020-06-09] MEDS: dilTIAZem HCL 240 MG CAPCR PO SCH (03:42)
[2020-06-09] MEDS: ONDANSETRON INJ 2 MG/ML 2 ML VIAL IV PRN (03:49)
[2020-06-09] MEDS: ceFAZolin 2000MG 2,000 MG/15 ML SYR IV SCH (05:04)
[2020-06-09] MEDS: POLYETHYLENE (MIRALAX) 17 GM PACK PO SCH ×4 (05:07→23:19)
[2020-06-09 08:19] LABS: Basophils # (auto) 0.01 K/uL (0-0.2); Basophils % (auto) 0.1 %; Hematocrit (blood only) 34.8 % (37-47); Hemoglobin 11.2 g/dL (12.0-16.0); Immature Granulocytes # (auto) 0.06 K/uL (0.00-0.02); Immature Granulocytes % (auto) 0.4 %; Lymphocytes # (auto) 0.69 K/uL (1.2-3.4); Lymphocytes % (auto) 4.7 %; Mean Corpuscular Hemoglobin 29.6 pg (25-34); Mean Corpuscular Hgb Conc 32.2 g/dL (32-36); Mean Corpuscular Volume 92.1 fL (80-100); Mean Platelet Volume 9.4 fL (7.4-10.4); Monocytes # (auto) 0.97 K/uL (0.11-0.59); Monocytes % (auto) 6.6 %; Neutrophils # (auto) 13.02 K/uL (1.4-6.5); Neutrophils % (auto) 88.2 %; Platelet Count 250 K/uL (130-400); RDW Coefficient of Variation 18.6 % (11.5-14.5); Red Blood Count 3.78 M/uL (4.2-5.4); White Blood Count 14.75 K/uL (4.8-10.8)
[2020-06-09 08:42] LABS: Calcium 9.3 mg/dl (8.5-10.1); Creatinine Clr Calc Pharmacy 92.5 ml/min; Est GFR (African American) 108.9
[2020-06-09] MEDS ORDERED: dilTIAZem HCL 240 MG CAPCR PO SCH (09:00)
[2020-06-09] MEDS ORDERED: PROCHLORPERAZINE 5 MG in SYRINGE 4 ML IV PRN (09:00)
[2020-06-09] MEDS ORDERED: BUTALBITAL/ACETAMIN/CAFFEINE TAB PO ONE (09:30)
[2020-06-09] MEDS: LORazepam 0.5 MG TAB PO SCH ×2 (09:39→21:11)
[2020-06-09] MEDS ORDERED: CHLORASEPTIC 1.4% SOLN 180 ML BTL MT PRN (09:40)
[2020-06-09] MEDS: DULoxetine HCL 60 MG CAP PO SCH (09:40)
[2020-06-09] MEDS: CALCIUM 600MG + VIT D 400 IU TAB PO SCH ×2 (09:40→10:56)
[2020-06-09] MEDS: GABAPENTIN 300 MG CAP PO SCH ×3 (09:40→21:11)
[2020-06-09] MEDS: VITAMIN B COMPLEX TAB PO SCH ×3 (09:41→21:12)
[2020-06-09] MEDS: MULTIVITAMIN TAB PO SCH ×2 (09:41→10:53)
[2020-06-09] MEDS: PANTOprazole 40 MG TAB PO SCH ×2 (09:41→10:45)
[2020-06-09] MEDS: MAGNESIUM OXIDE 400 MG TAB PO SCH ×3 (09:41→21:11)
[2020-06-09] MEDS: tiZANidine HCL 4 MG TABLET PO SCH ×4 (09:41→21:12)
[2020-06-09] MEDS: FERROUS SULFATE 325 MG TAB PO SCH ×3 (09:41→21:10)
--- NOTE | 2020-06-09 09:56 | Hospitalist Progress Note ---
Date of Service June 09, 2020 Assessment & Plan (1) S/P spinal surgery: Post op day# 1 S/P removal stimulator, decompression T10-S1 and fusion L3- S1 by Dr Oates Post op day# 1 S/P removal stimulator, decompression T10-S1 and fusion L3-S1 by Dr Oates Per ortho for pain control, wound care, anticoagulation and activities Monitor H&H (hgb 11.2 today from 12 pre-op) Continue incentive spirometry, PT/OT when appropriate (2) Migraine: Developed severe migraine headache overnight with associated nausea and vomiting x 1 Was given zofran, phenergan, imitrex, dilaudid and oxycodone overnight into senior qa analyst without improvement Seen this morning and given additional phenergan, imitrex and Fioricet with improvement Will continue to monitor closely. No focal neurological deficits (3) Atrial fibrillation: On Xarelto CHADVAS:2 Xarelto has been on hold for 7 days. Cardiology recommends resuming as soon as possible Resume Xarelto per ortho recommendations Continue diltiazem (4) Hypertension: Elevated in setting of pain. Optimize pain control. Add additional agents if indicated (5) Hyperlipidemia: Continue atorvastatin (6) Anxiety: Continue duloxetine, ativan BID (7) GERD (gastroesophageal reflux disease): Continue PPI DVT Prophylaxis -SCDs Disposition per primary service. Follows with Dr Freed in [place] for routine care Pt was seen and care coordinated with Dr Che. See addendum Thank you for this consultation. We will follow the patient with you during their hospital stay. Admission and Anticipated Discharge Date Admission Date: June 08, 2020 Supervising Physician Co-Signing Physician Notes Pt was sen and examined. Agreed with Shanta MCCARTHY exam, assessment and plan. Pt is having severe headache. She said that she was given imetrex last night with no reli s/p removal stimulator, decompression T10-S1 and fusion L3-S1 performed by Dr. Oates today. No post complication. Continue pain control. Incentive spirometry. Will monitor Hgb. Resume Xarelto once bleeding control. PT/OT eval and Fall precaution. Subjective Seen and examined in 316-1. Still experiencing intense migraine headache on right side of head with associated photophobia, phonophobia and nausea. Vomited once earlier this morning. Was given antiemetics and Imitrex in the early hours of the evening without improvement. Endorsing 10 out of 10 pain from headache at time of exam. Denies any surgical site pain. Denies any visual changes, dizziness, confusion, chest pain, palpitations, shortness of breath, abdominal pain, dysuria, diarrhea or constipation. Review of Systems Review of Systems: At least ten systems reviewed and negative except as noted in the HPI. Physical Exam Physical Exam: General Appearance: WD/WN, vitals as above, NAD, in acute pain from headache, conversing easily Head: normocephalic, atraumatic Eyes: normal inspection, PERRL, conjunctivae normal, anicteric sclerae ENT: hard of hearing, external ear and nose normal, oropharynx normal Neck: normal visual inspection, trachea midline, no thyromegaly Respiratory: normal respiratory effort, lungs clear to auscultation, no wheeze, rales, rhonchi. No accessory muscle use Cardiovascular: regular rate, rhythm, no murmur, normal peripheral pulses, no BLE edema Abdomen/GI: normal bowel sounds, soft, nontender, no hepatosplenomegaly Extremities/Musculoskeletal: Surgical dressing c/d/i. MILTON drain visualized. No cyanosis or clubbing, extremities motor strength 5/5 Neurologic: PERRL, EOMI, CN's II-XI intact bilaterally and moves all extremities Psychiatric: A+Ox3, euthymic affect Skin: no rashes, normal color, warm/dry Results & Data Results & Data ([facility]) Vital Signs (Past 12 Hours) Vital Signs Temp Pulse Resp BP Pulse Ox 06/09/20 08:49 36.8 C 85 18 159/78 H 96 06/09/20 03:43 147/77 H 06/09/20 01:59 36.6 C 83 20 174/79 H 95 06/08/20 22:28 36.4 C L 88 20 149/75 H 97 Laboratory Results Short CBC 06/09/20 Range/Units 07:52 WBC 14.75 H (4.8-10.8) K/uL Hgb 11.2 L (12.0-16.0) g/dL Hct 34.8 L (37-47) % Plt Count 250 (130-400) K/uL BMP 06/09/20 07:52 Sodium 139 Potassium 4.0 Chloride 105 Carbon Dioxide 28 BUN 14 Creatinine 0.62 Glucose 173 H Calcium 9.3
[2020-06-09] MEDS: PROMETHAZINE HCL 12.5 MG in SODIUM CHLORIDE 0.9% 50 ML IV PRN (10:10)
[2020-06-09] MEDS ORDERED: SODIUM CHLORIDE 0.9% 1000ML 500 ML IV ONE (11:11)
--- NOTE | 2020-06-09 12:29 | Orthopedic Progress Note ---
Date of Service June 09, 2020 Assessment & Plan (1) Neurogenic claudication due to lumbar spinal stenosis: Admission and Anticipated Discharge Date Admission Date: June 08, 2020 At this time we will continue to try to improve her migraine headache. Would like her to begin physical therapy when she is able to tolerate it. Subjective Back pain controlled leg pain improved struggling with migraine headaches. Physical Exam Physical Exam: Patient is in bed at this time. She has a migraine. She does have excellent strength testing lower extremities. Results & Data ([facility]) Vital Signs (Past 12 Hours) Vital Signs Temp Pulse Resp BP Pulse Ox 06/09/20 11:14 36.6 C 92 H 14 170/70 H 100 06/09/20 08:49 36.8 C 85 18 159/78 H 96 06/09/20 03:43 147/77 H 06/09/20 01:59 36.6 C 83 20 174/79 H 95
[2020-06-09] MEDS: HYDROmorphone INJ 1 MG/ML SYRINGE IV PRN ×2 (14:56→21:12)
[2020-06-09] MEDS: ACETAMINOPHEN 500 MG TAB PO SCH ×2 (14:58→21:13)
[2020-06-09] MEDS: ATORVASTATIN 20 MG TAB PO SCH (21:09)
[2020-06-09] MEDS: DOCUSATE SODIUM/SENNA 50/8.6MG TAB PO SCH (21:10)
[2020-06-09] MEDS: ZOLPIDEM TARTRATE 10 MG TAB PO SCH (21:12)
[2020-06-10] MEDS: ACETAMINOPHEN 500 MG TAB PO SCH ×3 (05:26→20:38)
[2020-06-10] MEDS: oxyCODONE HCL IR 5 MG TAB (IMMEDIATE RELEASE) PO PRN ×3 (05:28→16:37)
[2020-06-10] MEDS: POLYETHYLENE (MIRALAX) 17 GM PACK PO SCH ×4 (05:29→23:45)
[2020-06-10 06:57] LABS: Appearance Urine Cloudy (Clear); Bacteria Urine Automated Negative (Negative); Bilirubin Urine Negative (Negative); Blood Urine 2+ (Negative); Color Urine Dark Yellow; Epithelial Cell Urine Auto >30 /lpf (0-5); Glucose Urine UA Negative (Negative); Ketones Urine Trace (Negative); Leukocyte Esterase Urine 2+ (Negative); Nitrite Urine Negative (Negative); Protein Urine 1+ (Negative); RBC Urine Automated 0-4 /hpf (0-4); Specific Gravity Urine 1.026 (1.000-1.030); Urobilinogen Urine Negative (Negative); WBC Urine Automated >30 /hpf (0-5); pH Urine 5.5 (4.5-7.5)
[2020-06-10 07:18] LABS: Cast Urine Automated 0 /lpf (0-5)
[2020-06-10] MEDS: MAGNESIUM OXIDE 400 MG TAB PO SCH ×2 (08:30→20:15)
[2020-06-10] MEDS: CALCIUM 600MG + VIT D 400 IU TAB PO SCH (08:30)
[2020-06-10] MEDS: FERROUS SULFATE 325 MG TAB PO SCH ×2 (08:30→20:14)
[2020-06-10] MEDS: GABAPENTIN 300 MG CAP PO SCH ×3 (08:30→20:14)
[2020-06-10] MEDS: PANTOprazole 40 MG TAB PO SCH (08:30)
[2020-06-10] MEDS: dilTIAZem HCL 240 MG CAPCR PO SCH (08:31)
[2020-06-10] MEDS: LORazepam 0.5 MG TAB PO SCH ×2 (08:31→20:38)
[2020-06-10] MEDS: MULTIVITAMIN TAB PO SCH (08:31)
[2020-06-10] MEDS: DULoxetine HCL 60 MG CAP PO SCH (08:31)
[2020-06-10] MEDS: tiZANidine HCL 4 MG TABLET PO SCH ×3 (08:32→20:15)
[2020-06-10] MEDS: VITAMIN B COMPLEX TAB PO SCH ×2 (08:32→20:15)
--- NOTE | 2020-06-10 08:59 | Hospitalist Progress Note ---
Date of Service June 10, 2020 Assessment & Plan (1) S/P spinal surgery: Post op day# 2 S/P removal stimulator, decompression T10-S1 and fusion L3- S1 by Dr Oates Post op day#2 S/P removal stimulator, decompression T10-S1 and fusion L3-S1 by Dr Oates Per ortho for pain control, wound care, anticoagulation and activities Monitor H&H Continue incentive spirometry, PT/OT when appropriate (2) Abnormal urinalysis: Developed dysuria yesterday, UA abnormal. Started empiric Rocephin, follow cultures (3) Migraine: Developed severe migraine headache on POD #1 that has since resolved Encouraged continued fluid intake, Imitrex and antiemetics PRN (4) Atrial fibrillation: On Xarelto CHADVAS:2 Xarelto has been on hold for 7 days. Cardiology recommends resuming as soon as possible Resume Xarelto per ortho recommendations Continue diltiazem (5) Hypertension: Elevated in setting of pain. Optimize pain control. Add additional agents if indicated (6) Hyperlipidemia: Continue atorvastatin (7) Anxiety: Continue duloxetine, ativan BID (8) GERD (gastroesophageal reflux disease): Continue PPI DVT ppx: per ortho Follows with Dr Freed in [place] for routine care Pt was seen and care coordinated with Dr Che. See addendum Thank you for this consultation. We will follow the patient with you during their hospital stay. Admission and Anticipated Discharge Date Admission Date: June 08, 2020 Supervising Physician Co-Signing Physician Notes Pt was sen and examined. Agreed with Shanta MCCARTHY exam, assessment and plan. Pt said that headache improves. H said that he has been having dysuria. UA positive for leukocyte. s/p day #2 decompression T10-S1 and fusion L3-S1 performed by Dr. Oates. No post complication. Continue pain control. Incentive spirometry. Will monitor Hgb. Resume Xarelto once bleeding control. PT/OT eval and Fall precaution. will start on Rocephin IV. Urine cx collected - result pending. MD Yane Subjective Seen and examined in 316-1. Mild postoperative pain. Migraine headache has completely resolved. Tolerating diet without issue. No chest pain or shortness of breath. No abdominal pain. Some dysuria. Passing flatus but no bowel movement. Denies any fever, chills, lightheadedness, headache, nausea, vomiting. Review of Systems Review of Systems: At least ten systems reviewed and negative except as noted in the HPI. Physical Exam Physical Exam: General Appearance: WD/WN, vitals as above, NAD, resting comfortably, conversing easily Head: normocephalic, atraumatic Eyes: normal inspection, PERRL, conjunctivae normal, anicteric sclerae ENT: hard of hearing, external ear and nose normal, oropharynx normal Neck: normal visual inspection, trachea midline, no thyromegaly Respiratory: normal respiratory effort, lungs clear to auscultation, no wheeze, rales, rhonchi. No accessory muscle use Cardiovascular: regular rate, rhythm, no murmur, normal peripheral pulses, no BLE edema Abdomen/GI: normal bowel sounds, soft, nontender, no hepatosplenomegaly Extremities/Musculoskeletal: Surgical dressing c/d/i. MILTON drain visualized. No cyanosis or clubbing, extremities motor strength 5/5 Neurologic: PERRL, EOMI, CN's II-XI intact bilaterally and moves all extremities Psychiatric: A+Ox3, euthymic affect Skin: no rashes, normal color, warm/dry Results & Data Results & Data ([facility]) Vital Signs (Past 12 Hours) Vital Signs Temp Pulse Resp BP Pulse Ox 06/10/20 07:26 36.6 C 97 H 16 146/67 H 91 06/10/20 01:08 90 100 06/09/20 22:54 36.9 C 104 H 14 131/65 96 Laboratory Results Urine 06/09/20 Range/Units Unknown Urine Color Dark Yellow Urine Appearance Cloudy A (Clear) Urine pH 5.5 (4.5-7.5) Ur Specific [place] 1.026 (1.000-1.030) Urine Protein 1+ H (Negative) Urine Glucose (UA) Negative (Negative)
--- NOTE | 2020-06-10 09:18 | Orthopedic Progress Note ---
Date of Service June 10, 2020 Assessment & Plan (1) Neurogenic claudication due to lumbar spinal stenosis: Admission and Anticipated Discharge Date Admission Date: June 08, 2020 This time continue physical therapy monitor MILTON output anticipate discharge home in the next few days. Subjective Patient's migraine is markedly improved. Her leg symptoms are improved. Back pain controlled. Physical Exam Physical Exam: Patient is in the chair at the bedside. Is good strength testing. Appears comfortable. Results & Data ([facility]) Vital Signs (Past 12 Hours) Vital Signs Temp Pulse Resp BP Pulse Ox 06/10/20 07:26 36.6 C 97 H 16 146/67 H 91 06/10/20 01:08 90 100 06/09/20 22:54 36.9 C 104 H 14 131/65 96
[2020-06-10] MEDS: cefTRIAXone SODIUM 2,000 MG in DEXTROSE 5% 50 ML IV SCH (10:17)
[2020-06-10 10:36] LABS: Hematocrit (blood only) 28.5 % (37-47); Hemoglobin 9.3 g/dL (12.0-16.0); Mean Corpuscular Hemoglobin 29.5 pg (25-34); Mean Corpuscular Hgb Conc 32.6 g/dL (32-36); Mean Corpuscular Volume 90.5 fL (80-100); Mean Platelet Volume 9.2 fL (7.4-10.4); Platelet Count 213 K/uL (130-400); RDW Coefficient of Variation 19.1 % (11.5-14.5); RDW Standard Deviation 63.5 fL (36.4-46.3); Red Blood Count 3.15 M/uL (4.2-5.4)
[2020-06-10 10:55] LABS: BUN Creatinine Ratio 24.1 (10-20); Calcium 8.5 mg/dl (8.5-10.1); Creatinine Clr Calc Pharmacy 76.4 ml/min; Est GFR (African American) 96.3; Est GFR (Non-African American) 83.1; Potassium 3.8 mmol/L (3.5-5.1)
[2020-06-10] MEDS: ATORVASTATIN 20 MG TAB PO SCH (20:13)
[2020-06-10] MEDS: DOCUSATE SODIUM/SENNA 50/8.6MG TAB PO SCH (20:14)
[2020-06-10] MEDS: ZOLPIDEM TARTRATE 10 MG TAB PO SCH (20:38)
[2020-06-11] MEDS: ACETAMINOPHEN 500 MG TAB PO SCH ×3 (05:12→21:38)
[2020-06-11] MEDS: POLYETHYLENE (MIRALAX) 17 GM PACK PO SCH ×3 (05:12→17:22)
[2020-06-11 06:52] LABS: Hematocrit (blood only) 30.7 % (37-47); Hemoglobin 9.8 g/dL (12.0-16.0); Mean Corpuscular Hemoglobin 29.4 pg (25-34); Mean Corpuscular Hgb Conc 31.9 g/dL (32-36); Mean Corpuscular Volume 92.2 fL (80-100); Mean Platelet Volume 9.6 fL (7.4-10.4); Platelet Count 218 K/uL (130-400); RDW Coefficient of Variation 18.8 % (11.5-14.5); RDW Standard Deviation 63.7 fL (36.4-46.3); Red Blood Count 3.33 M/uL (4.2-5.4); White Blood Count 10.28 K/uL (4.8-10.8)
[2020-06-11 07:40] LABS: BUN Creatinine Ratio 19.7 (10-20); Calcium 8.8 mg/dl (8.5-10.1); Creatinine Clr Calc Pharmacy 89.6 ml/min; Est GFR (African American) 107.8; Potassium 4.1 mmol/L (3.5-5.1)
[2020-06-11] MEDS: VITAMIN B COMPLEX TAB PO SCH ×2 (08:00→21:37)
[2020-06-11] MEDS: MAGNESIUM OXIDE 400 MG TAB PO SCH ×2 (08:00→21:37)
[2020-06-11] MEDS: tiZANidine HCL 4 MG TABLET PO SCH ×3 (08:00→21:37)
[2020-06-11] MEDS: dilTIAZem HCL 240 MG CAPCR PO SCH (08:01)
[2020-06-11] MEDS: PANTOprazole 40 MG TAB PO SCH (08:01)
[2020-06-11] MEDS: GABAPENTIN 300 MG CAP PO SCH ×3 (08:01→21:36)
[2020-06-11] MEDS: DULoxetine HCL 60 MG CAP PO SCH (08:01)
[2020-06-11] MEDS: CALCIUM 600MG + VIT D 400 IU TAB PO SCH (08:01)
[2020-06-11] MEDS: FERROUS SULFATE 325 MG TAB PO SCH ×2 (08:01→21:36)
[2020-06-11] MEDS: MULTIVITAMIN TAB PO SCH (08:01)
[2020-06-11] MEDS: oxyCODONE HCL IR 5 MG TAB (IMMEDIATE RELEASE) PO PRN ×2 (08:06→19:26)
[2020-06-11] MEDS: cefTRIAXone SODIUM 2,000 MG in DEXTROSE 5% 50 ML IV SCH (08:06)
[2020-06-11] MEDS: LORazepam 0.5 MG TAB PO SCH ×2 (08:06→21:35)
--- NOTE | 2020-06-11 10:12 | Orthopedic Progress Note ---
Date of Service June 11, 2020 Assessment & Plan (1) Neurogenic claudication due to lumbar spinal stenosis: Admission and Anticipated Discharge Date Admission Date: June 08, 2020 We will continue physical therapy monitor MILTON output. Will await final results for urinalysis and anticipate possible discharge home tomorrow. Subjective Back pain controlled leg pain improved Physical Exam Physical Exam: Patient has good strength testing appears comfortable. Results & Data ([facility]) Vital Signs (Past 12 Hours) Vital Signs Temp Pulse Resp BP Pulse Ox 06/11/20 07:02 36.6 C 104 H 18 162/75 H 92 06/11/20 06:32 37.2 C 98 H 16 164/77 H 96 06/10/20 23:25 36.8 C 99 H 16 135/76 93
--- NOTE | 2020-06-11 11:08 | Hospitalist Progress Note ---
Date of Service June 11, 2020 Assessment & Plan (1) S/P spinal surgery: Post op day#3 S/P removal stimulator, decompression T10-S1 and fusion L3-S1 by Dr Oates Per ortho for pain control, wound care, anticoagulation and activities Monitor H&H Continue incentive spirometry, PT/OT when appropriate recommend continued hospitalization until urine culture results Anemia H&H 9.8 and 30.7 Preop hemoglobin 12.4 Likely in setting of acute blood loss EBL: 200 mL; MILTON drain 360 mL Monitor H&H Insomnia Patient has been taking 10 mg of Ambien at at bedtime She is also taking scheduled lorazepam and oxycodone Patient also was found to have Tylenol PM at bedside, unsure if taken hold Ambien in favor of melatonin to prevent postoperative confusion given narcotics and benzodiazepines (2) Abnormal urinalysis: Urinalysis growing gram-negative bacilli Continue IV Rocephin, day #2 Symptoms have resolved (3) Migraine: Developed severe migraine headache on POD #1 that has since resolved Encouraged continued fluid intake, Imitrex and antiemetics PRN (4) Atrial fibrillation: On Xarelto CHADVAS:2 Xarelto has been on hold for 7 days. Cardiology recommends resuming as soon as possible Resume Xarelto per ortho recommendations Continue diltiazem (5) Hypertension: Blood pressure continues to be labile postoperatively Likely in setting of pain Continue diltiazem (6) Hyperlipidemia: Continue atorvastatin (7) Anxiety: Continue duloxetine, ativan BID (8) GERD (gastroesophageal reflux disease): Continue PPI DVT ppx: per ortho Follows with Dr Freed in [place] for routine care Pt was seen and care coordinated with Dr Che. See addendum Thank you for this consultation. We will follow the patient with you during their hospital stay. You can reach a member of the [facility] Hospitalist Team 10/09 via hospitalist role on tiger text. Admission and Anticipated Discharge Date Admission Date: June 08, 2020 Supervising Physician Co-Signing Physician Notes Pt was sen and examined. Agreed with Kerrie MCCARTHY exam, assessment and plan. Denies any headache. UA positive for leukocyte. Urine cx grew gram negative bacilli. s/p day #3 decompression T10-S1 and fusion L3-S1 performed by Dr. Oates. No post complication. Continue pain control. Incentive spirometry. Will monitor Hgb. Resume Xarelto once bleeding control. PT/OT eval and Fall precaution. Continue Rocephin IV. MD Yane Subjective Patient was seen and examined in room 316. Follow-up lumbar surgery, migraines and UTI. She is sitting up at bedside and is concerned where her hearing aids were. These were able to be found. She offers no acute concerns or complaints. Her migraine and headache has since been resolved. She further denies any dysuria, increased urgency or frequency with urination. She denies fever, chills, sweats, chest pain, shortness of breath, URI symptoms, nausea, vomiting, abdominal pain. She states she is moving her bowels. Per nurse last BM documented 06/07. Patient does not feel her abdomen is more distended than usual. Per nursing staff Tylenol PM was found in nightstand. Patient denies taking and stated that she received Ambien for sleep last night. Review of Systems Review of Systems: All systems reviewed & are unremarkable except as noted in HPI & below Physical Exam Physical Exam: Gen: WD/WN, female, sitting up at bedside, NAD, A&O x3 HEENT: Normocephalic, atraumatic, conjunctivae moist, sclerae anicteric, mucous membranes moist. Lung: Clear to Auscultation bilaterally, no wheezes/rales/rhonchi Heart: Regular rate, regular rhythm, no murmurs, rubs, or gallops Abdomen: Distended abdomen, decreased bowel sounds, soft, NT Extremities: No edema, lumbar dressing CDI, MILTON drain with serosanguineous d rainage Skin: Warm, no rash, negative turgor. Results & Data Results & Data ([facility]) Vital Signs (Past 12 Hours) Vital Signs Temp Pulse Resp BP Pulse Ox 06/11/20 07:02 36.6 C 104 H 18 162/75 H 92 06/11/20 06:32 37.2 C 98 H 16 164/77 H 96 06/10/20 23:25 36.8 C 99 H 16 135/76 93 Laboratory Results Short CBC 06/11/20 Range/Units 06:12 WBC 10.28 (4.8-10.8) K/uL Hgb 9.8 L (12.0-16.0) g/dL Hct 30.7 L (37-47) % Plt Count 218 (130-400) K/uL BMP 06/10/20 06/11/20 10:17 06:12 Sodium 134 L 134 L Potassium 3.8 4.1 Chloride 101 100 Carbon Dioxide 30 28 BUN 18 13 Creatinine 0.75 0.64 Glucose 113 H 150 H Calcium 8.5 8.8 Medications Administered Acetaminophen (Acetaminophen 500 Mg Tab) 1,000 mg PO Q8H JACOB Stop: 07/09/20 13:59 Last Admin: 06/11/20 05:12 Dose: 1,000 mg Documented by: [id number] Admin: 06/10/20 20:38 Dose: 1,000 mg Documented by: [id number] Admin: 06/10/20 13:21 Dose: 1,000 mg Documented by: [id number] Admin: 06/10/20 05:26 Dose: 1,000 mg Documented by: [id number] Admin: 06/09/20 21:13 Dose: 1,000 mg Documented by: [id number] Admin: 06/09/20 14:58 Dose: 1,000 mg Documented by: [id number] Atorvastatin Calcium (Atorvastatin 20 Mg Tab) 20 mg PO PM JACOB Stop: 07/08/20 20:59 Last Admin: 06/10/20 20:13 Dose: 20 mg Documented by: [id number] Admin: 06/09/20 21:09 Dose: 20 mg Documented by: [id number] Admin: 06/08/20 20:42 Dose: 20 mg Documented by: [id number] Diltiazem HCl (Diltiazem Hcl 240 Mg Capcr) 240 mg PO QAM JACOB Stop: 07/09/20 03:09 Last Admin: 06/11/20 08:01 Dose: 240 mg Documented by: [id number] Admin: 06/10/20 08:31 Dose: 240 mg Documented by: [id number] Admin: 06/09/20 03:42 Dose: 240 mg Documented by: [id number] Duloxetine HCl (Duloxetine Hcl 60 Mg Cap) 120 mg PO QAM JACOB Stop: 07/09/20 08:59 Last Admin: 06/11/20 08:01 Dose: 120 mg Documented by: [id number] Admin: 06/10/20 08:31 Dose: 120 mg Documented by: [id number] Admin: 06/09/20 09:40 Dose: 120 mg Documented by: [id number] Ferrous Sulfate (Ferrous Sulfate 325 Mg Tab) 325 mg PO BID JACOB Stop: 07/08/20 20:59 Last Admin: 06/11/20 08:01 Dose: 325 mg Documented by: [id number] Admin: 06/10/20 20:14 Dose: 325 mg Documented by: [id number] Admin: 06/10/20 08:30 Dose: 325 mg Documented by: [id number] Admin: 06/09/20 21:10 Dose: 325 mg Documented by: [id number] Admin: 06/09/20 10:53 Dose: Not Given Documented by: [id number] Admin: 06/08/20 20:42 Dose: 325 mg Documented by: [id number] Gabapentin (Gabapentin 300 Mg Cap) 300 mg PO TID [facility] Stop: 07/08/20 20:59 Last Admin: 06/11/20 08:01 Dose: 300 mg Documented by: [id number] Admin: 06/10/20 20:14 Dose: 300 mg Documented by: [id number] Admin: 06/10/20 13:20 Dose: 300 mg Documented by: [id number] Admin: 06/10/20 08:30 Dose: 300 mg Documented by: [id number] Admin: 06/09/20 21:11 Dose: 300 mg Documented by: [id number] Admin: 06/09/20 14:57 Dose: 300 mg Documented by: [id number] Admin: 06/09/20 09:40 Dose: 300 mg Documented by: [id number] Admin: 06/08/20 20:40 Dose: Not Given Documented by: [id number] Hydromorphone HCl (Hydromorphone Inj 0.5 Mg/0.5 Ml Syr) 0.5 mg IV Q3H PRN PRN Reason: MOD pain (scale 4-6) & Pre PT Stop: 06/22/20 16:53 Last Admin: 06/09/20 02:00 Dose: 0.5 mg Documented by: [id number] Hydromorphone HCl (Hydromorphone Inj 1 Mg/Ml Syringe) 1 mg IV Q3H PRN PRN Reason: severe pain (scale 7-10) Stop: 06/22/20 16:53 Last Admin: 06/09/20 21:12 Dose: 1 mg Documented by: [id number] Admin: 06/09/20 14:56 Dose: 1 mg Documented by: [id number] Promethazine HCl 12.5 mg/ (Sodium Chloride) 50.5 mls @ 204 mls/hr IV Q6H PRN PRN Reason: Nausea &/or Vomiting Stop: 07/08/20 16:53 Last Infusion: 06/09/20 10:35 Dose: 0 mls/hr Documented by: [id number] Admin: 06/09/20 10:10 Dose: 204 mls/hr Documented by: [id number] Infusion: 06/09/20 00:18 Dose: 0 mls/hr Documented by: [id number] Admin: 06/08/20 23:35 Dose: 204 mls/hr Documented by: [id number] Ceftriaxone Sodium 2,000 mg/ (Dextrose) 70 mls @ 140 mls/hr IV DAILY JACOB; Protocol Stop: 06/15/20 10:29 Last Infusion: 06/11/20 09:51 Dose: 0 mls/hr Documented by: [id number] Admin: 06/11/20 08:06 Dose: 140 mls/hr Documented by: [id number] Infusion: 06/10/20 10:54 Dose: 0 mls/hr Documented by: [id number] Admin: 06/10/20 10:17 Dose: 140 mls/hr Documented by: [id number] Ketorolac Tromethamine (Ketorolac Tromethamine 15 Mg/Ml Vial) 15 mg IV Q6 [facility] Last Admin: 06/08/20 17:52 Dose: 15 mg Documented by: [id number] Lorazepam (Lorazepam 0.5 Mg Tab) 0.5 mg PO BID [facility] Stop: 07/08/20 20:59 Last Admin: 06/11/20 08:06 Dose: 0.5 mg Documented by: [id number] Admin: 06/10/20 20:38 Dose: 0.5 mg Documented by: [id number] Admin: 06/10/20 08:31 Dose: Not Given Documented by: [id number] Admin: 06/09/20 21:11 Dose: 0.5 mg Documented by: [id number] Admin: 06/09/20 09:39 Dose: 0.5 mg Documented by: [id number] Admin: 06/08/20 20:40 Dose: Not Given Documented by: [id number] Magnesium Oxide (Magnesium Oxide 400 Mg Tab) 400 mg PO BID [facility] Stop: 07/08/20 20:59 Last Admin: 06/11/20 08:00 Dose: 400 mg Documented by: [id number] Admin: 06/10/20 20:15 Dose: 400 mg Documented by: [id number] Admin: 06/10/20 08:30 Dose: 400 mg Documented by: [id number] Admin: 06/09/20 21:11 Dose: 400 mg Documented by: [id number] Admin: 06/09/20 10:42 Dose: Not Given Documented by: [id number] Admin: 06/08/20 20:42 Dose: 400 mg Documented by: [id number] Metoclopramide HCl (Metoclopramide Hcl Inj 5 Mg/Ml 2 Ml Vial) 10 mg IV Q6H PRN PRN Reason: Nausea &/or Vomiting Stop: 07/08/20 16:53 Last Admin: 06/09/20 02:00 Dose: 10 mg Documented by: [id number] Multivitamins (Multivitamin Tab) 1 tab PO QAM [facility] Stop: 07/09/20 08:59 Last Admin: 06/11/20 08:01 Dose: 1 tab Documented by: [id number] Admin: 06/10/20 08:31 Dose: 1 tab Documented by: [id number] Admin: 06/09/20 10:53 Dose: Not Given Documented by: [id number] Multivitamins/Minerals (Calcium 600mg + Vit D 400 Iu Tab) 1 tab PO QAM JACOB Stop: 07/09/20 08:59 Last Admin: 06/11/20 08:01 Dose: 1 tab Documented by: [id number] Admin: 06/10/20 08:30 Dose: 1 tab Documented by: [id number] Admin: 06/09/20 10:56 Dose: Not Given Documented by: [id number] Ondansetron HCl (Ondansetron Inj 2 Mg/Ml 2 Ml Vial) 4 mg IV Q6H PRN PRN Reason: Nausea &/or Vomiting Stop: 07/08/20 16:53 Last Admin: 06/09/20 03:49 Dose: 4 mg Documented by: [id number] Admin: 06/08/20 21:49 Dose: 4 mg Documented by: [id number] Oxycodone HCl (Oxycodone Hcl Ir 5 Mg Tab (Immediate Release)) 5 - 10 mg PO Q4H PRN PRN Reason: Moderate-Severe Pain & Pre PT Stop: 06/22/20 16:53 Last Admin: 06/11/20 08:06 Dose: 10 mg Documented by: [id number] Admin: 06/10/20 16:37 Dose: 10 mg Documented by: [id number] Admin: 06/10/20 10:34 Dose: 10 mg Documented by: [id number] Admin: 06/10/20 05:28 Dose: 10 mg Documented by: [id number] Admin: 06/09/20 00:38 Dose: 10 mg Documented by: [id number] Pantoprazole Sodium (Pantoprazole 40 Mg Tab) 40 mg PO QAM JACOB Stop: 07/09/20 08:59 Last Admin: 06/11/20 08:01 Dose: 40 mg Documented by: [id number] Admin: 06/10/20 08:30 Dose: 40 mg Documented by: [id number] Admin: 06/09/20 10:45 Dose: Not Given Documented by: [id number] Polyethylene Glycol (Polyethylene (Miralax) 17 Gm Pack) 17 gm PO Q6 JACOB Stop: 07/09/20 05:59 Last Admin: 06/11/20 05:12 Dose: 17 gm Documented by: [id number] Admin: 06/10/20 23:45 Dose: Not Given Documented by: [id number] Admin: 06/10/20 17:39 Dose: 17 gm Documented by: [id number] Admin: 06/10/20 13:20 Dose: Not Given Documented by: [id number] Admin: 06/10/20 05:29 Dose: 17 gm Documented by: [id number] Admin: 06/09/20 23:19 Dose: Not Given Documented by: [id number] Admin: 06/09/20 17:00 Dose: Not Given Documented by: [id number] Admin: 06/09/20 12:56 Dose: Not Given Documented by: [id number] Admin: 06/09/20 05:07 Dose: Not Given Documented by: [id number] Senna/Docusate Sodium (Docusate Sodium/Senna 50/8.6mg Tab) 2 tab PO HS JACOB Stop: 07/08/20 20:59 Last Admin: 06/10/20 20:14 Dose: 2 tab Documented by: [id number] Admin: 06/09/20 21:10 Dose: Not Given Documented by: [id number] Admin: 06/08/20 20:42 Dose: 2 tab Documented by: [id number] Tizanidine HCl (Tizanidine Hcl 4 Mg Tablet) 4 mg PO TID JACOB Stop: 07/08/20 20:59 Last Admin: 06/11/20 08:00 Dose: 4 mg Documented by: [id number] Admin: 06/10/20 20:15 Dose: 4 mg Documented by: [id number] Admin: 06/10/20 13:20 Dose: 4 mg Documented by: [id number] Admin: 06/10/20 08:32 Dose: 4 mg Documented by: [id number] Admin: 06/09/20 21:12 Dose: 4 mg Documented by: [id number] Admin: 06/09/20 14:57 Dose: 4 mg Documented by: [id number] Admin: 06/09/20 10:49 Dose: Not Given Documented by: [id number] Admin: 06/08/20 20:41 Dose: Not Given Documented by: [id number] Vitamin B Complex (Vitamin B Complex Tab) 1 tab PO BID JACOB Stop: 07/08/20 20:59 Last Admin: 06/11/20 08:00 Dose: 1 tab Documented by: [id number] Admin: 06/10/20 20:15 Dose: 1 tab Documented by: [id number] Admin: 06/10/20 08:32 Dose: 1 tab Documented by: [id number] Admin: 06/09/20 21:12 Dose: 1 tab Documented by: [id number] Admin: 06/09/20 10:52 Dose: Not Given Documented by: [id number] Admin: 06/08/20 20:42 Dose: 1 tab Documented by: [id number] Zolpidem Tartrate (Zolpidem Tartrate 10 Mg Tab) 10 mg PO HS JACOB Stop: 07/08/20 20:59 Last Admin: 06/10/20 20:38 Dose: 10 mg Documented by: [id number] Admin: 06/09/20 21:12 Dose: 10 mg Documented by: [id number] Admin: 06/08/20 20:39 Dose: Not Given Documented by: [id number] Discontinued Medications Acetaminophen (Acetaminophen 500 Mg Tab) 1,000 mg PO PREOP JACOB Stop: 06/08/20 18:00 Last Admin: 06/08/20 11:52 Dose: 1,000 mg Documented by: [id number] Acetaminophen/Butalbital/Caffeine (Butalbital/Acetamin/Caffeine Tab) 1 tab PO 0930 ONE Stop: 06/09/20 09:31 Last Admin: 06/09/20 09:39 Dose: 1 tab Documented by: [id number] Bacitracin (Bacitracin Inj 50,000 Unit Vial) Confirm Administered Dose 50,000 units .ROUTE .STK-MED ONE Stop: 06/08/20 12:03 Last Admin: 06/08/20 13:52 Dose: 50,000 units Documented by: [id number] Bupivacaine HCl/Epinephrine Bitart (Bupivacaine/Epinephrine 0.5% Mpf 1:200,000 30 Ml Vial) Confirm Administered Dose 30 ml .ROUTE .STK-MED ONE Stop: 06/08/20 12:03 Last Admin: 06/08/20 15:08 Dose: 30 ml Documented by: [id number] Bupivacaine HCl/Epinephrine Bitart (Bupivacaine/Epinephrine 0.5% Mpf 1:200,000 30 Ml Vial) Confirm Administered Dose 30 ml .ROUTE .STK-MED ONE Stop: 06/08/20 12:44 Last Admin: 06/08/20 13:51 Dose: 10 ml Documented by: [id number] Celecoxib (Celebrex 200 Mg Cap) 200 mg PO PREOP JACOB Stop: 06/08/20 18:00 Last Admin: 06/08/20 11:52 Dose: 200 mg Documented by: [id number] Gabapentin (Gabapentin 300 Mg Cap) 300 mg PO PREOP JACOB Stop: 06/08/20 18:00 Last Admin: 06/08/20 11:52 Dose: 300 mg Documented by: [id number] Lactated Ringer's (Lr) 1,000 mls @ 15 mls/hr IV .Q24H JACOB Stop: 06/09/20 05:59 Last Infusion: 06/08/20 12:34 Dose: 0 mls/hr Documented by: [id number] Admin: 06/08/20 11:40 Dose: 15 mls/hr Documented by: [id number] Cefazolin Sodium (Ancef 2000mg) 2,000 mg in 15 mls @ 3.75 mls/min IV PREOP JACOB; Protocol Stop: 06/08/20 18:00 Last Admin: 06/08/20 12:20 Dose: 3.75 mls/min Documented by: [id number] Lactated Ringer's (Lr) 1,000 mls @ 100 mls/hr IV .Q10H JACOB Stop: 07/08/20 16:53 Last Infusion: 06/08/20 22:20 Dose: 0 mls/hr Documented by: [id number] Admin: 06/08/20 17:52 Dose: 100 mls/hr Documented by: [id number] Acetaminophen (Ofirmev) 1,000 mg in 100 mls @ 400 mls/hr IV Q8H PRN PRN Reason: MILD Pain Rating 1,2,3 Stop: 06/09/20 16:53 Last Infusion: 06/09/20 00:18 Dose: 0 mls/hr Documented by: [id number] Admin: 06/08/20 23:14 Dose: 400 mls/hr Documented by: [id number] Cefazolin Sodium (Ancef 2000mg) 2,000 mg in 15 mls @ 3.75 mls/min IV Q8H JACOB; Protocol Stop: 06/09/20 04:03 Last Admin: 06/09/20 05:04 Dose: 3.75 mls/min Documented by: [id number] Admin: 06/08/20 20:38 Dose: 3.75 mls/min Documented by: [id number] Lactated Ringer's (Lr) 1,000 mls @ 50 mls/hr IV .Q20H ONE Stop: 06/09/20 18:06 Last Infusion: 06/09/20 16:54 Dose: 0 mls/hr Documented by: [id number] Admin: 06/08/20 22:20 Dose: 50 mls/hr Documented by: [id number] Promethazine HCl 12.5 mg/ (Sodium Chloride) 50.5 mls @ 202 mls/hr IV NOW STA Stop: 06/08/20 22:58 Last Infusion: 06/09/20 00:17 Dose: 0 mls/hr Documented by: [id number] Admin: 06/09/20 00:16 Dose: 202 mls/hr Documented by: [id number] Sodium Chloride (Nss 1000ml) 500 mls @ 999 mls/hr IV .Q31M ONE Stop: 06/09/20 11:41 Last Infusion: 06/09/20 14:14 Dose: 0 mls/hr Documented by: [id number] Admin: 06/09/20 11:37 Dose: 999 mls/hr Documented by: [id number] Labetalol HCl (Labetalol Hcl Iv 5 Mg/Ml 20ml) Confirm Administered Dose 10 mg IV .STK-MED ONE Stop: 06/08/20 15:49 Last Admin: 06/08/20 17:17 Dose: Not Given Documented by: [id number] Labetalol HCl (Labetalol Hcl Iv 5 Mg/Ml 20ml) 10 mg IV NOW STA Stop: 06/08/20 15:50 Last Admin: 06/08/20 15:51 Dose: 10 mg Documented by: [id number] Cosigned by: [id number] Miscellaneous ( Floseal Hemostatic Matrix 10ml) 10 ml TOP ONCE ONE Stop: 06/08/20 13:51 Last Admin: 06/08/20 15:08 Dose: 20 ml Documented by: [id number] Miscellaneous ( Floseal Hemostatic Matrix 10ml) 10 ml TOP ONCE ONE Stop: 06/08/20 14:35 Last Admin: 06/08/20 15:09 Dose: 10 ml Documented by: [id number] Scopolamine (Scopolamine 1 Mg Tdsy) Confirm Administered Dose 1 mg TD .STK-MED ONE Stop: 06/08/20 12:15 Last Admin: 06/08/20 12:16 Dose: 1 mg Documented by: [id number] Sumatriptan Succinate (Sumatriptan Succinate 100 Mg Tab) 100 mg PO DAILY PRN PRN Reason: Migraine Headache Stop: 07/08/20 16:53 Last Admin: 06/09/20 07:23 Dose: 100 mg Documented by: [id number]
[2020-06-11] MEDS: ZOLPIDEM TARTRATE 10 MG TAB PO SCH (21:35)
[2020-06-11] MEDS: ATORVASTATIN 20 MG TAB PO SCH (21:35)
[2020-06-11] MEDS: DOCUSATE SODIUM/SENNA 50/8.6MG TAB PO SCH (21:36)
[2020-06-11] MEDS: SUMAtriptan succinate 100 MG TAB PO PRN (21:42)
[2020-06-12] MEDS: POLYETHYLENE (MIRALAX) 17 GM PACK PO SCH ×3 (00:20→11:57)
[2020-06-12] MEDS: oxyCODONE HCL IR 5 MG TAB (IMMEDIATE RELEASE) PO PRN (03:46)
[2020-06-12] MEDS: ACETAMINOPHEN 500 MG TAB PO SCH (05:45)
[2020-06-12] MEDS: CALCIUM 600MG + VIT D 400 IU TAB PO SCH (09:02)
[2020-06-12] MEDS: MAGNESIUM OXIDE 400 MG TAB PO SCH (09:02)
[2020-06-12] MEDS: MULTIVITAMIN TAB PO SCH (09:02)
[2020-06-12] MEDS: GABAPENTIN 300 MG CAP PO SCH (09:02)
[2020-06-12] MEDS: VITAMIN B COMPLEX TAB PO SCH (09:02)
[2020-06-12] MEDS: SUMAtriptan succinate 100 MG TAB PO PRN (09:02)
[2020-06-12] MEDS: FERROUS SULFATE 325 MG TAB PO SCH (09:02)
[2020-06-12] MEDS: tiZANidine HCL 4 MG TABLET PO SCH (09:02)
[2020-06-12] MEDS: dilTIAZem HCL 240 MG CAPCR PO SCH (09:03)
[2020-06-12] MEDS: PANTOprazole 40 MG TAB PO SCH (09:03)
[2020-06-12] MEDS: DULoxetine HCL 60 MG CAP PO SCH (09:03)
[2020-06-12] MEDS: cefTRIAXone SODIUM 2,000 MG in DEXTROSE 5% 50 ML IV SCH (09:06)
[2020-06-12] MEDS: LORazepam 0.5 MG TAB PO SCH (09:09)
--- NOTE | 2020-06-12 10:46 | Discharge Summary ---
Date of Service June 12, 2020 Admission HPI Per Admitting Provider This is a 65-year-old female who presents with chronic persistent back and bilateral leg pain. Failing course of nonoperative care she is here for surgical invention. Principal Diagnosis Lumbar spinal stenosis with neurogenic claudication Discharge Data Allergies Allergy/AdvReac Type Severity Reaction Status Date / Time No Known Allergies Allergy Verified 06/08/20 11:28 Consultations 06/08/20 16:54 Consult Hospitalist Routine Procedures Performed Operation Date: 06/08/20 12:15 Actual Procedures p L3-S1 Decompression and Fusion, Spinal Cord Monitoring, Application of Bone Infuse, Placement of Interbody L4-L5 and L5-S1 - Francisco Oates DO s Removal of Spinal Cord Simulator, - Francisco Oates DO Ordered Studies 06/08/20 12:15 FL lumbar spine 2-3V Routine Hospital Course (1) Neurogenic claudication due to lumbar spinal stenosis: Patient went lumbar decompression fusion tolerated so was taken to orthopedic for possibly. Postop day one she was up and ambulating progressed to postop day #2 on postop day 3 pain was well controlled MITLON drain decreasing appropriately. Excellent strength testing. Subsequently discharged home. Discharge orders instructions from the chart for further review. Total Time Total Time Spent Total Time Spent (In Minutes): 20 minutes Discharge Plan Discharge Items Patient Disposition: Home - Self-Care Reason For Visit: Spinal Stenosis, Lumbar Region without Neurogenic Discharge Diagnosis: Lumbar spinal stenosis with neurogenic claudication Activity: As commented below Non-emergency contact: Primary Care Provider Call non-emergency contact if: you have any medication questions Follow-up/Referrals: Pari Freed DO [Primary Care Provider] - Diet: Regular Addtl Attending Provider Instructions: ACTIVITY RECOMMENDATIONS: SELF CARE INSTRUCTIONS AFTER THORACIC/LUMBAR FUSIONS 1. You may walk to your tolerance. It is good exercise for your legs and back. Expect some back and intermittent leg aches and pains. 2. You may perform "counter-top" level activities (make a sandwich, antonio with a project, etc.). 3. No bending or lifting of more than 10 pounds or back twisting of any nature (roll like a log when turning in bed). 4. You may ride in a car for 20-30 minutes at a time. No driving until after your first visit with your doctor. 5. Frequent changes of position and restricting sitting to 30 minutes at a time will help limit the amount of back spasms and stiffness you may experience. 6. You may discontinue the use of ambulatory aids (cane, crutches, etc.) once your strength and confidence allow. 7. You may keg inspector the shower and let water strike your incision when you arrive home at least once daily. Do not take a tub bath, sit in a hot tub or go into a swimming pool until after your first recheck in the office. SPECIAL CARE INSTRUCTIONS: VERY IMPORTANT TO READ AND REVIEW A. Your surgical incision has been closed with a cosmetic suture under the skin that will dissolve in about 6 weeks. In 14 days, you can use a pair of clean scissors and cut the suture that is left outside of the skin at the ends of your incision. 1. The small skin tapes can be removed 7 days after surgery if they have not fallen off by that point. 2. You may keep the wound open to air as much as possible to promote healing after post-op day number 5 unless told otherwise by your doctor. 3. If you think the wound looks like it is becoming infected (redness or worsening drainage) and/or you are experiencing fever, chill or worsening back pain and muscle spasms, contact the office so that we may evaluate you as soon as possible. B. Complications are uncommon, but please contact us if you have any signs or symptoms of: 1. wound infection (fever higher than 102.5 degrees F, redness, separation of wound, drainage, or increasing pain from the incision) 2. blood clots in legs (pain, swelling, redness and warmth in legs) 3. urinary tract infection (fever higher than 102.5 degrees F, burning upon urination or increased frequency of urination) 4. nerve problems (inability to walk on your toes or heels, numbness, loss of bowel or bladder control) 5. any other symptoms that concern you C. Please call the office at if you have any concerns or questions about your operation or recovery. D. No smoking! Smoking drastically decreases the chance of a solid fusion. E. Do not take any anti-inflammatory medications (Indocin, Advil, Motrin, Aspirin, Naprosyn, etc.) as these may inhibit the chance of a solid fusion. Tylenol is okay to take for pain. MANAGING PAIN AFTER SPINAL SURGERY 1. Narcotic medication is intended for short-term use and will be provided for surgical pain. Surgical pain usually lasts for a period of 4-6 weeks. Narcotic medication includes Percocet, Vicodin, Darvocet, Tylenol #3 or Lortab. 2. Longer-term pain is more appropriately treated with non-narcotic medication such as Tylenol ES. 3. Muscle spasm is not appropriately treated with narcotics. Muscle relaxers such as Soma, Flexeril or Skelaxin can be used along with Tylenol ES. 4. Remember that we all live with some "aches and pains". This is not unusual or uncommon after an injury or as we get older. a. Back pain is expected and may include muscle spasms for 4 to 6 weeks after surgery. The pain should gradually improve. If the pain worsens for no apparent reason, please contact the office. b. Intermittent leg pain may also be experienced and should not be concerned about unless it worsens for no apparent reason. If so, please contact the office. 5. We will provide appropriate medication within the normal guidelines of their prescribed use. We will also be very cautious and aware of potential abuse and extended duration of patients' medication needs. a. Pain medications are for your comfort and to assist with sleep and rest so that the tissue can heal. They are not provided in order to return to normal activity and should not be used through the day. To do so or worsening pain at night can result from ongoing tissue damage and development of tolerance to the prescribed medicine. 6. Please allow 2-3 days to process refills. Prescriptions will not be mailed but must be picked up at the office. FOLLOW UP VISIT: Keep your scheduled follow-up appointment. Any questions, please call the office at . Pending Studies at Discharge: No Stand-Alone Forms: My [employer], Smoking Cessation Medications and DC Order Prescriptions: New tramadol 50 mg tablet 50 mg PO Q6H PRN (Reason: pain, moderate) Qty: 30 RF: 0 oxycodone 5 mg tablet 5 mg PO Q6H PRN (Reason: pain, severe) Qty: 30 RF: 0 Continued multivitamin Tablet 1 tab PO QAM RF: 0 celecoxib [Celebrex] 200 mg Capsule 200 mg PO QAM RF: 0 atorvastatin [Lipitor] 20 mg Tablet 20 mg PO PM RF: 0 diltiazem HCl [Cardizem CD] 180 mg Capsule,Extended Release 24hr 240 mg PO QAM RF: 0 tizanidine [Zanaflex] 4 mg Tablet 4 mg PO TID RF: 0 sumatriptan succinate [Imitrex] 100 mg Tablet 100 mg PO DAILY PRN (Reason: Migraine Headache) RF: 0 omeprazole 40 mg Capsule,Delayed Release(Dr/Ec) 40 mg PO QAM RF: 0 lorazepam [Ativan] 0.5 mg Tablet 0.5 mg PO BID RF: 0 gabapentin 300 mg Capsule 300 mg PO TID RF: 0 vitamin B complex Tablet 100 tab PO BID RF: 0 magnesium 250 mg Tablet 500 mg PO BID RF: 0 zolpidem [Ambien] 10 mg Tablet 10 mg PO HS RF: 0 duloxetine [Cymbalta] 60 mg Capsule,Delayed Release(Dr/Ec) 120 mg PO QAM RF: 0 iron 159 mg (45 mg iron) Tablet Extended Release 65 mg PO BID RF: 0 Xarelto 20 mg Tablet 20 mg PO PM RF: 0 Caltrate + D3 Plus Minerals 300 mg-800 unit -25 mg-0.5 mg Tablet 1 tab PO QAM RF: 0 Discharge Orders: Discharge Order (Routine); Ordered 06/12/20 Ordered By: Francisco Oates Admission Data Admit Date/Time: 06/08/20 15:33 Attending Provider: Francisco Oates Admit Provider: Francisco Oates Primary Care Provider: Pari Freed Other Providers: Marilyn Ortez ; Radha Che
--- NOTE | 2020-06-12 11:00 | Hospitalist Progress Note ---
Date of Service June 12, 2020 Assessment & Plan (1) S/P spinal surgery: Post op day#4 S/P removal stimulator, decompression T10-S1 and fusion L3-S1 by Dr Oates Per ortho for pain control, wound care, anticoagulation and activities Monitor H&H Continue incentive spirometry, PT/OT when appropriate pain control as per ortho Fall precaution Anemia H&H 9.8 and 30.7 Preop hemoglobin 12.4 Likely in setting of acute blood loss EBL: 200 mL; MILTON drain 360 mL Monitor H&H Insomnia Patient has been taking 10 mg of Ambien at at bedtime She is also taking scheduled lorazepam and oxycodone Patient also was found to have Tylenol PM at bedside, unsure if taken hold Ambien in favor of melatonin to prevent postoperative confusion given narcotics and benzodiazepines (2) UTI (urinary tract infection): Urine cx grew Serratia Marcescens and Enterobacter cloacae Received IV Rocephin days #3 Will transition to Cipro to complete course abx Pt said that she had cipro in the past and tolerated it well (3) Migraine: Developed severe migraine headache on POD #1 that has since resolved Encouraged continued fluid intake, Imitrex and antiemetics PRN (4) Atrial fibrillation: On Xarelto CHADVAS:2 Xarelto has been on hold for 7 days. Cardiology recommends resuming as soon as possible Resume Xarelto per ortho recommendations Continue diltiazem (5) Hypertension: Blood pressure continues to be labile postoperatively Likely in setting of pain Continue diltiazem (6) Hyperlipidemia: Continue atorvastatin (7) Anxiety: Continue duloxetine, ativan BID (8) GERD (gastroesophageal reflux disease): Continue PPI DVT ppx: per ortho Follows with Dr Freed in [place] for routine care Thank you for this consultation. We will follow the patient with you during their hospital stay. You can reach a member of the [facility] Hospitalist Team 10/09 via hospitalist role on tiger text. Admission and Anticipated Discharge Date Admission Date: June 08, 2020 Subjective Pt was seen and examined Lying in bed with no distress Pt said that she feels much better She was walking in the hallway with therapist Denies any chest pain, palpitation, dizziness and SOB Review of Systems Review of Systems: All systems reviewed & are unremarkable except as noted in Subjective Physical Exam Physical Exam: General- No acute distress Head- atraumatic Eyes- PERRL, EOMI, ENT- oropharynx clear Neck- supple, no JVD Lungs- clear to auscultation Heart- regular rhythm; no murmur Abdomen- normal bowel sounds, soft, nontender Extremities- no calf tenderness Neuro- alert, oriented x 3; PERRL, EOMI; no facial palsy; no dysarthria Skin- warm & dry Results & Data Results & Data ([facility]) Vital Signs (Past 12 Hours) Vital Signs Temp Pulse Resp BP Pulse Ox 06/12/20 07:15 36.8 C 94 H 16 132/74 94
== END 2020-06-12 14:45 | disposition home or self-care (01) | DRG 454 ==
LOC: ASU 10:35 → 3E 15:33

== ENCOUNTER 2021-08-17 07:56 | Inpatient (IN) ==
--- NOTE | 2021-07-31 10:14 | Anesthesiology Consultation ---
Date of Service July 31, 2021 Assessment & Plan (1) Encounter for pre-operative examination: Chart Review Chart Review: Acceptable Risk for Surgery (pending preop Covid testing results ) and Patient NOT seen in Pre Admission Testing Per nursing assessment 07/27/2021, patient denies any recent travel. No known COVID infection in the past 90 days. Patient is fully vaccinated for COVID. No known Covid positive exposures or Covid related symptoms. Preop Covid testing scheduled 08/04/21= will await results Patient last seen by PCP 06/28/2021 = patient presents for routine follow-up. Also needs medical clearance for upcoming neck surgery. History of GI bleeding in the pastno current signs or symptoms of bleeding. Patient scheduled for watchman procedure 10/06/2021. Patient continues to take Xarelto. Patient states she had cardiac clearance last week. "Patient completed CBC (mild anemia stable), coags (normal), hemoglobin A1c 5.3. Patient is medically cleared for upcoming procedure under proposed anesthesia. She has been told it will be under general anesthesia. Will need cardiac clearance and their recommendations for holding blood thinner." Cardiac clearance letter 06/21/2021 = patient is cleared at low cardiac risk for upcoming surgery. Patient last seen by cardiology in office 05/26/2021 = patient seen for hospital follow-up. Admitted in [place] for weakness, fatigue and chest paindiagnosed with anemia and GI bleed/gastritis. Did have 1 unit transfusion. Did have echo while in hospitalhad swelling in legs. Atrial fibrillationparoxysmal. [id number] score 3. Continue current medications. Did have recent GI bleed with 1 unit of blood transfusionthis makes for second transfusion in 6 months for severe anemia. Poor candidate for long-term AC use- ideal candidate for watchman DILLAN closure. Bilateral LE edemaworse in the a.m.mild DOEimproved since transfusion. We will check labs. Hypertensioncontrolled. Dyslipidemiacontinue Lipitor daily. History Surgery Operation Date: 08/08/21 07:45 Proposed Procedures p C5-C7 Anterior Cervical Discectomy and Fusion, Spinal Cord Monitoring - Francisco Oates DO Height/Weight Height: 5 ft 2 in Weight: 90.718 kg Allergies Allergy/AdvReac Type Severity Reaction Status Date / Time No Known Allergies Allergy Verified 11/28/20 15:10 Medications Home Medications Medication Instructions Recorded Confirmed Last Taken atorvastatin 20 mg tablet (Lipitor) 20 mg PO PM 05/02/20 07/27/21 06/07/20 19:00 calcium carb 300 mg-D3 800 1 tab PO QAM 05/02/20 07/27/21 06/07/20 06:00 unit-mag ox 25 mg-millinery copyist 0.5 mg-antony-Zn tablet (Caltrate + D3 Plus Minerals) duloxetine 60 mg capsule,delayed 120 mg PO QAM 05/02/20 07/27/21 06/08/20 06:00 release (Cymbalta) ferrous sulfate, dried 159 mg (45 65 mg PO BID 05/02/20 07/27/21 06/07/20 19:00 mg iron) tablet,extended release (iron ER) gabapentin 300 mg capsule 300 mg PO TID 05/02/20 07/27/21 06/08/20 06:00 lorazepam 0.5 mg tablet (Ativan) 0.5 mg PO DAILY PRN 05/02/20 07/27/21 06/07/20 19:00 magnesium 250 mg tablet 500 mg PO BID 05/02/20 07/27/21 06/07/20 19:00 multivitamin 1 tab PO QAM 05/02/20 07/27/21 06/07/20 06:00 rivaroxaban 20 mg tablet (Xarelto) 20 mg PO PM 05/02/20 07/27/21 1 Week Ago ~06/01/20 sumatriptan succinate 100 mg 100 mg PO UD PRN 05/02/20 07/27/21 06/07/20 19:00 tablet (Imitrex) tizanidine 4 mg tablet (Zanaflex) 4 mg PO TID 05/02/20 07/27/21 06/07/20 19:00 vitamin B complex 100 tab PO BID 05/02/20 07/27/21 06/07/20 19:00 zolpidem 10 mg tablet (Ambien) 10 mg PO HS 05/02/20 07/27/21 06/07/20 22:00 diltiazem HCl 240 mg capsule,24 300 mg PO QAM 11/28/20 07/27/21 Unknown hr,extended release hydroxychloroquine 200 mg tablet 200 mg PO QAM 07/27/21 07/27/21 Unknown pantoprazole 40 mg tablet,delayed 40 mg PO BID 07/27/21 07/27/21 Unknown release (Protonix) Past Medical History Medical History (Updated 07/31/21 @ 10:18 by Carmen Martinez PA-C) Anxiety Stable with med Atrial fibrillation Dx'ed 1994> follows with Dr. Valentino Brooke Cardiology> Xarelto/Cardizem, no cardioversions - usually brought on by dehydration Chronic back pain Degenerative disc disease Fibromyalgia GERD (gastroesophageal reflux disease) Well controlled and stable GI bleed 04/2021 hospitalized in [place] for anemia, due to GI bleed from Xarelto-, states records were sent to Dr Cao [facility]- states had blood transfusion while was in hospital History of anesthesia reaction Pt states woke up from anesthesia w/ migraine after last procedure; states Imitrex is only thing that works for her History of COVID-19 - DEC 20, 2019 - 03/21/21-cough, runny nose, congestion, sneezing- no hospitalization Hyperlipidemia Hypertension Impaired fasting glucose Migraine On anticoagulant therapy Currently taking xarelto Osteoarthritis Post-operative hemorrhage Had ERCP and EUS [facility] on 11/15/20- started with dizziness on 11/18/20- admitted 11/21/20 to 11/24/20 found patient had internal bleeding - was transfused 11/21/20 while admitted- had EGD 11/22/20- bleeding had stopped/clotted. Rheumatoid arthritis Past Family History Family History Mother Diabetes Past Surgical History Surgical History Family history of reaction to anesthesia DAUGHTER>PONV Fusion of spine LUMBAR Gallstone REMOVED IN LIVER DUCT VIA EUS History of bilateral tubal ligation History of carpal tunnel release RT/LEFT History of cholecystectomy History of colonoscopy History of dilatation and curettage History of esophagogastroduodenoscopy (EGD) History of laparoscopy History of tooth extraction Hx of bladder repair surgery bladder sling Hx of thumb surgery left for arthritis Nausea and vomiting after administration of anesthetic agent Spinal cord stimulator status + REMOVAL; removed by dr oates may 2020 Social History Smoking Status: Never smoker Do You Dip or Chew Tobacco: No Hx Alcohol Use: No Hx Substance Use: No substance use type: does not use Lab Results Anesthesia Preop Results Results Anesthesia Widget: WBC 9.13 K/uL (4.8-10.8) 07/12/21 Hgb 11.0 g/dL (12.0-16.0) L 07/12/21 Hct 36.5 % (37-47) L 07/12/21 Plt 278 K/uL (130-400) 07/12/21 Na 138 mmol/L (136-145) 07/12/21 K 4.7 mmol/L (3.5-5.1) 07/12/21 Cl 102 mmol/L (98-107) 07/12/21 CO2 30 mmol/L (21-32) 07/12/21 BUN 17 mg/dl (6-23) 07/12/21 Creat 0.79 mg/dl (0.6-1.2) 07/12/21 Glucose Level 226 mg/dl (70-99(Fasting)) H 07/12/21 PT 10.7 Seconds (9.0-12.0) 07/12/21 PTT 24.4 Seconds (21.0-31.0) 07/12/21 INR 1.0 (0.9-1.1) 07/12/21 Urine Color Dark Yellow 07/12/21 Urine Appearance Turbid (Clear) A 07/12/21 Urine pH 7.0 (4.5-7.5) 07/12/21 Urine Specific [place] 1.021 (1.000-1.030) 07/12/21 Urine Protein Negative (Negative) 07/12/21 Urine Glucose (UA) Negative (Negative) 07/12/21 Urine Ketones Negative (Negative) 07/12/21 Urine Blood Negative (Negative) 07/12/21 Urine Nitrite Positive (Negative) A 07/12/21 Urine Bilirubin Negative (Negative) 07/12/21 Urine Urobilinogen Negative (Negative) 07/12/21 Urine Leukocyte Esterase 1+ (Negative) H 07/12/21 Urine WBC (Auto) 1-5 /hpf (0-5) 07/12/21 Urine RBC (Auto) 0-4 /hpf (0-4) 07/12/21 Urine Hyaline Casts (Auto) 1-5 /lpf (0-5) 07/12/21 Urine Epithelial Cells (Auto) 10-20 /lpf (0-5) H 07/12/21 Urine Bacteria (Auto) Negative (Negative) 07/12/21 Testing Laboratory Results Anemia chronic and stable- PCP aware and monitoring Hyperglycemia- hx of impaired fasting glucose- Hgb A1C 5.3 per 06/28/21 PCP note Electrocardiogram Date: 05/26/21 Sinus rhythm at 86bpm. Chest X-Ray Date: 11/21/20 Findings: + NAD Echocardiogram Date: 04/29/21 EF: 60-65% LV Function: normal RWMA: + none Other Findings: + LVH (borderline/concentric) and + diastolic dysfunction (Grade I ) Stress Test Date: 07/29/15 Negative ECG stress response. LVEF 73%. Relatively low probability of CAD/ischemia. SPECT perfusion images are considered to be within normal limits. 85% MPHR. 10 METS.
[2021-08-17] MEDS ORDERED: ONDANSETRON INJ 2 MG/ML 2 ML VIAL ONE (09:23)
[2021-08-17] MEDS ORDERED: DEXAMETHASONE SOD INJ 4 MG/ML VIAL ONE (09:23)
[2021-08-17] MEDS ORDERED: LIDOCAINE 2% 2 ML VIAL/AMP(20MG/ML) INFIL ONE (09:23)
[2021-08-17] MEDS ORDERED: MIDAZOLAM HCL 1 MG/ML 2ML VIAL ONE (09:24)
[2021-08-17] MEDS ORDERED: fentaNYL citrate 100 MCG/2 ML VIAL ONE (09:24)
[2021-08-17] MEDS ORDERED: PROMETHAZINE HCL 12.5 MG in SODIUM CHLORIDE 0.9% 50 ML IV PRN ×2 (09:27→13:41)
[2021-08-17] MEDS ORDERED: ATROPINE SULFATE 0.1 MG/ML 10ML SYR IV PRN (09:27)
[2021-08-17] MEDS ORDERED: ONDANSETRON INJ 2 MG/ML 2 ML VIAL IV PRN ×2 (09:27→13:41)
[2021-08-17] MEDS ORDERED: SCOPOLAMINE 1 MG TDSY TD ONE ×2 (09:27→09:29)
--- NOTE | 2021-08-17 09:42 | History & Physical Bridge Note ---
Date of Service August 17, 2021 History & Physical Bridge Note I have examined the patient, reviewed the History & Physical and in the interval since the performance of the History & Physical I have noted the following changes of clinical significance: no changes noted
--- NOTE | 2021-08-17 09:46 | History & Physical Report ---
Date of Service August 17, 2021 Assessment & Plan (1) Cervical stenosis of spinal canal: Plan: C5-C7 anterior cervical discectomy and fusion History of Present Illness Chief Complaint: Neck and arm pain Primary Care Provider: Pari Freed DO This is a 66-year-old female known to the resents chronic persistent neck and arm symptoms after failing course of nonoperative care she is here for surgical invention. Allergies Allergy/AdvReac Type Severity Reaction Status Date / Time No Known Allergies Allergy Verified 08/17/21 08:28 Home Medications Medication Instructions Recorded Confirmed Type atorvastatin 20 mg tablet (Lipitor) 20 mg PO PM 05/02/20 08/17/21 History calcium carb 300 mg-D3 800 1 tab PO QAM 05/02/20 08/17/21 History unit-mag ox 25 mg-flight engineer helicopter 0.5 mg-antony-Zn tablet (Caltrate + D3 Plus Minerals) duloxetine 60 mg capsule,delayed 120 mg PO QAM 05/02/20 08/17/21 History release (Cymbalta) ferrous sulfate, dried 159 mg (45 65 mg PO BID 05/02/20 08/17/21 History mg iron) tablet,extended release (iron ER) gabapentin 300 mg capsule 300 mg PO TID 05/02/20 08/17/21 History lorazepam 0.5 mg tablet (Ativan) 0.5 mg PO DAILY PRN 05/02/20 08/17/21 History magnesium 250 mg tablet 500 mg PO BID 05/02/20 08/17/21 History multivitamin 1 tab PO QAM 05/02/20 08/17/21 History rivaroxaban 20 mg tablet (Xarelto) 20 mg PO PM 05/02/20 08/17/21 History sumatriptan succinate 100 mg 100 mg PO UD PRN 05/02/20 08/17/21 History tablet (Imitrex) tizanidine 4 mg tablet (Zanaflex) 4 mg PO TID 05/02/20 08/17/21 History vitamin B complex 100 tab PO BID 05/02/20 08/17/21 History zolpidem 10 mg tablet (Ambien) 10 mg PO HS 05/02/20 08/17/21 History diltiazem HCl 240 mg capsule,24 300 mg PO QAM 11/28/20 08/17/21 History hr,extended release hydroxychloroquine 200 mg tablet 200 mg PO QAM 07/27/21 08/17/21 History pantoprazole 40 mg tablet,delayed 40 mg PO BID 07/27/21 08/17/21 History release (Protonix) Past Med/Surg History Medical History (Updated 08/17/21 @ 09:46 by Francisco Oates, DO) Anxiety Stable with med Atrial fibrillation Dx'ed 1994> follows with Dr. Valentino Brooke Cardiology> Xarelto/Cardizem, no cardioversions - usually brought on by dehydration Chronic back pain Degenerative disc disease Fibromyalgia GERD (gastroesophageal reflux disease) Well controlled and stable GI bleed 04/2021 hospitalized in [place] for anemia, due to GI bleed from Xarelto-, states records were sent to Dr Cao [facility]- states had blood transfusion while was in hospital History of anesthesia reaction Pt states woke up from anesthesia w/ migraine after last procedure; states Imitrex is only thing that works for her History of COVID-19 - DEC 20, 2019 - 03/21/21-cough, runny nose, congestion, sneezing- no hospitalization Hyperlipidemia Hypertension Impaired fasting glucose Migraine On anticoagulant therapy Currently taking xarelto Osteoarthritis Post-operative hemorrhage Had ERCP and EUS [facility] on 11/15/20- started with dizziness on 11/18/20- admitted 11/21/20 to 11/24/20 found patient had internal bleeding - was t ransfused 11/21/20 while admitted- had EGD 11/22/20- bleeding had stopped/clotted. Rheumatoid arthritis Surgical History Family history of reaction to anesthesia DAUGHTER>PONV Fusion of spine LUMBAR Gallstone REMOVED IN LIVER DUCT VIA EUS History of bilateral tubal ligation History of carpal tunnel release RT/LEFT History of cholecystectomy History of colonoscopy History of dilatation and curettage History of esophagogastroduodenoscopy (EGD) History of laparoscopy History of tooth extraction Hx of bladder repair surgery bladder sling Hx of thumb surgery left for arthritis Nausea and vomiting after administration of anesthetic agent Spinal cord stimulator status + REMOVAL; removed by dr oates may 2020 Family History Mother Diabetes Social History Smoking Status: Never smoker 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); Do You Dip or Chew Tobacco: No; Tobacco Cessation Education Requested by Patient: No Hx Alcohol Use: No Hx Substance Use: No Preferred Language: Spanish Communication Ability: Effective Jack Setter Required: No Beliefs That Will Affect Care: None Current Living Situation: Spouse Other Information That Helps Us Care for You: No Feels Safe at Home: Yes Safety Concerns: Feels Safe At This Time Assistive Devices: Walker Physical Exam Physical Exam: Patient is alert and oriented Heart regular in rhythm Lungs clear Results & Data Results & Data ([facility]) Vital Signs (Past 12 Hours) Vital Signs Temp Pulse Resp BP Pulse Ox 08/17/21 08:50 37.7 C H 92 H 18 173/98 H 93
[2021-08-17] MEDS ORDERED: BUPIVACAINE/EPINEPHRINE 0.25% 1:200,000 30 ML VIAL ONE (10:03)
[2021-08-17] MEDS ORDERED: ceFAZolin 330 MG/ML 1 GM VIAL ONE (10:03)
[2021-08-17] MEDS ORDERED: HYDROmorphone INJ 2 MG/ML SYR/VIAL ONE (10:51)
[2021-08-17] MEDS ORDERED: FLOSEAL HEMOSTATIC MATRIX 10ML TOP ONE (11:00)
[2021-08-17] MEDS ORDERED: PROPOFOL IV EMULSION 10 MG/ML 20 ML VIAL IV ONE (11:25)
[2021-08-17] MEDS ORDERED: ROCURONIUM BROMIDE 10 MG/ML 5 ML VIAL IV ONE (11:26)
[2021-08-17] MEDS ORDERED: SUCCINYLCHOLINE 100MG/5ML SYR IV ONE (11:32)
[2021-08-17] MEDS ORDERED: SUGAMMADEX SODIUM 200 MG/2 ML VIAL IV ONE (11:39)
--- NOTE | 2021-08-17 11:55 | Operative Report ---
Post Operative Report Pre & Post Diagnosis Operation Date: 08/17/21 09:35 Pre-Op Diagnosis: Cervical spinal stenosis with radiculopathy Post-Op Diagnosis: Same I identified the patient and participated in the time-out.: Yes Procedure Operation Date: 08/17/21 09:35 Actual Procedures #1 anterior cervical discectomy with bilateral foraminotomies C5-C6 C6-C7. #2 anterior cervical arthrodesis C5-C6 C6-C7. #3 placement of 7 mm spiral cage at C5-C6 and C6-C7. #4 application of valentine plate and screws from C5-C7. Surgeon Francisco Oates, Washer Engineer Helper Mariely Bullock Estimated Blood Loss 10 Findings Consistent with Post-Op Diagnosis Specimens None Indications This is a 66-year-old female who presents with image diagnosis after failed course of nonoperative care she is here for surgical intervention. Description of Procedure Patient was met with identified informed consent obtained. Patient was then taken to the operative suite underwent intubation placed in a supine position the Roverto table with the head in the Juarez headhunter. All bony prominences well-padded eyes inspected to ensure no external pressure placed upon them. This point the anterior cervical spine was prepped and draped in normal sterile fashion. The assistance of fluoroscopy identified the C6 vertebral body and a transverse incision was placed along the right anterior aspect of the cervical spine overlying his region. Blunt dissection with assistance of bipolar electrocautery was performed down to and exposing the anterior cervical spine from C5-C7. Several 10 retractor was placed. Then performed a complete discectomy of C5-C6 out to the uncovertebral joints bilaterally. Franklin distracting pins were utilized to assist in visualization. Removed all posterior annular fibers longitudinal ligament bilateral foraminotomies performed and a 7 mm spiral cage with I factor tapped into position. Then proceeded to see 6 C7. Again complete discectomy performed out to the uncovertebral joints bilaterally. Franklin distracting pins again utilized to assist in visualization. Removed all posterior annular fibers longitudinal ligament bilateral foraminotomies performed. The endplates were then burred to subcortical any bone and a 7 mm Spira cage filled with I factor tapped in positi on. Distracting apparatus was removed all anterior osteophytes burred to smooth cortical surface and a valentine plate and screws applied from C5-C7. Incision was then copiously irrigated explored to ensure no damage to surrounding structures or remaining bleeding. 10 round MILTON drain inserted. The incision was then closed with 2 Vicryl in a fashion of 4 Monocryl for final skin closure. Steri-Strip sterile dressings placed. Patient waken taken PACU stable condition. Please note spinal cord monitoring was utilized at the procedure no changes noted. Lastly Mariely Bullock was present out the entire surgery involved the patient positioning complex portions of the surgery and fascial closure. I attest to the content of the Intraoperative Record and any orders documented therein. Any exceptions are noted below.
--- NOTE | 2021-08-17 12:16 | Fluoroscopy Report ---
FL cervical 2-3V CLINICAL HISTORY: ACDF C5-7 COMPARISON STUDY: None. FLUOROSCOPY TIME: 11 seconds. FLUOROSCOPIC IMAGES: 3 FINDINGS: Fluoroscopy was provided during C5-C7 anterior discectomy and fusion. Hardware is intact. E ndotracheal tube is partially imaged. Surgical drain is in place. IMPRESSION: Fluoroscopy provided during C5-C7 anterior discectomy and fusion. ACT 112: Negative or not required by law. Electronically signed by: Santiago Baker M.D. 08/17/2021 12:14 PM
[2021-08-17] MEDS ORDERED: ESMOLOL HCL INJ 10 MG/ML 10ML VIAL IV ONE (12:20)
[2021-08-17] MEDS: LABETALOL HCL IV 5 MG/ML 20ML IV PRN ×2 (12:39→12:56)
[2021-08-17] MEDS: HYDROmorphone INJ 1 MG/ML SYRINGE IV PRN ×2 (12:43→13:06)
--- NOTE | 2021-08-17 13:15 | Anesthesiology Progress Note ---
Date of Service August 17, 2021 Anesthesia Post Procedure Vital Signs Vital Signs: Temp Pulse Pulse Resp BP BP Pulse Ox 08/17/21 13:05 94 H 13 171/91 H 96 08/17/21 12:55 84 12 182/94 H 98 08/17/21 12:45 84 12 155/96 H 98 08/17/21 12:35 99 H 12 213/102 H 99 08/17/21 12:25 87 14 196/98 H 97 08/17/21 12:17 36.1 C L 88 12 174/88 H 99 08/17/21 08:50 37.7 C H 92 H 18 173/98 H 93 Pain Intensity Head: Pain Intensity: 7 Neck: Pain Intensity: 7 Transfer of Care Handoff Completed per policy Notes Mental Status: alert / awake / arousable Patient Amnestic to Procedure: Yes Nausea / Vomiting: adequately controlled Pain: adequately controlled Airway Patency, RR, SpO2: stable & adequate BP & HR: stable & adequate Hydration State: stable & adequate Anesthetic Complications: no major complications apparent
[2021-08-17] MEDS: SODIUM CHLORIDE 0.9% 1000ML 1,000 ML IV SCH ×2 (13:40→20:51)
[2021-08-17] MEDS ORDERED: NALOXONE HCL 0.4 MG/1 ML VIAL/CARP IV PRN (13:41)
[2021-08-17] MEDS ORDERED: hydrOXYzine HCl 25 MG TAB PO PRN (13:41)
[2021-08-17] MEDS ORDERED: ALUMINUM/MAGNESIUM SUSP 30 ML UDC PO PRN (13:41)
[2021-08-17] MEDS ORDERED: traMADol HCL 50 MG TABLET PO PRN (13:41)
[2021-08-17] MEDS ORDERED: HYDROmorphone INJ 0.5 MG/0.5 ML SYR IV PRN (13:41)
[2021-08-17] MEDS ORDERED: DO NOT ADMINISTER FLU VACCINE PRN (13:41)
[2021-08-17] MEDS ORDERED: dexAMETHasone 8 MG in SYRINGE 0 ML IV PRN (13:41)
[2021-08-17] MEDS ORDERED: bisacodyL 10 MG SUPP PR PRN (13:41)
[2021-08-17] MEDS ORDERED: DO NOT ADMINISTER PNEUMOCOCCAL VACCINE PRN (13:41)
[2021-08-17] MEDS ORDERED: RACEPINEPHRINE 2.25% NEBU SOLN 0.5 ML VIAL INH PRN (13:41)
[2021-08-17] MEDS ORDERED: ONDANSETRON 4 MG OD TAB PO PRN (13:41)
[2021-08-17] MEDS ORDERED: diphenhydrAMINE Capsule 25 MG CAP PO PRN (13:41)
[2021-08-17] MEDS ORDERED: SUMAtriptan succinate 100 MG TAB PO PRN (13:41)
[2021-08-17] MEDS ORDERED: ACETAMINOPHEN 500 MG TAB PO PRN (13:41)
[2021-08-17] MEDS ORDERED: LORazepam 0.5 MG in SYRINGE 0.25 ML IV PRN (13:41)
[2021-08-17] MEDS ORDERED: SOD PHOSPHATE/SOD BIPHOSPHATE ENEMA 132 ML BTL PR PRN (13:41)
[2021-08-17] MEDS ORDERED: ACETAMINOPHEN 1,000 MG/100 ML VIAL IV PRN (13:41)
[2021-08-17] MEDS ORDERED: MAGNESIUM HYDROXIDE SUSP 30 ML UDC PO PRN (13:41)
[2021-08-17] MEDS ORDERED: METOCLOPRAMIDE HCL INJ 5 MG/ML 2 ML VIAL IV PRN (13:41)
[2021-08-17] MEDS ORDERED: oxyCODONE HCL IR 5 MG TAB (IMMEDIATE RELEASE) PO PRN (13:41)
[2021-08-17] MEDS ORDERED: FAMOTIDINE 20 MG TAB PO PRN (13:41)
[2021-08-17] MEDS ORDERED: LORazepam 0.5 MG TAB PO PRN (13:41)
[2021-08-17] MEDS ORDERED: HYDROmorphone INJ 1 MG/ML SYRINGE IV PRN (13:41)
[2021-08-17] MEDS: GABAPENTIN 300 MG CAP PO SCH ×2 (14:18→21:44)
[2021-08-17] MEDS: tiZANidine HCL 4 MG TABLET PO SCH ×2 (14:19→21:43)
--- NOTE | 2021-08-17 15:03 | Hospitalist Consultation ---
Date of Consultation August 17, 2021 Assessment & Plan (1) Cervical stenosis of spinal canal: (2) S/P spinal surgery: (3) Atrial fibrillation: (4) Migraine: (5) Hypertension: (6) Anxiety: (7) Hyperlipidemia: (8) Rheumatoid arthritis: This is a 66yo F with a PMH of cervical stenosis, atrial fibrillation on Xarelto, hypertension, migraine headaches, anxiety, hyperlipidemia and other medical problems listed below who is POD#0 s/p anterior cervical discectomy with bilateral foraminotomies C5-C6 C6-C7. POD#0 s/p anterior cervical discectomy with bilateral foraminotomies C5-C6 C6-C7 Per ortho for pain control, wound care, anticoagulation and activities Monitor H&H (pre-op hgb 11) Continue incentive spirometry, PT/OT when appropriate Atrial fibrillation Xarelto held. Resume Xarelto per ortho recommendations Continue diltiazem Hypertension Elevated in setting of pain. Optimize pain control. Add additional agents if indicated Rheumatoid arthritis Continue hydroxychloroquine Hyperlipidemia Continue atorvastatin Migraine Encouraged continued fluid intake, Imitrex PRN Anxiety Continue duloxetine, Ativan BID GERD (gastroesophageal reflux disease) Continue PPI DVT ppx: per ortho Dispo: per primary service Follows with Dr Freed in [place] for routine care Patient seen in collaboration with Dr. Mars. Please see addendum. Supervising Physician Co-Signing Physician Notes Date of Service: August 17, 2021 Patient seen and examined Patient still quite drowsy likely from anaesthesia. Hence patient not able to provide hx and ROS could not be performed On exam, General: Drowsy but awakens to touch and falls back to sleep Eyes: Conjunctivae normal, not pale, anicteric sclerae, EOM intact bilaterally ENMT: External ear and nose normal, oropharynx normal Neck: Neck collar in place with surgical site drain insitu Respiratory: Normal respiratory effort, no respiratory distress, lungs clear to auscultation, no crackles and no wheezes Cardiovascular: RRR S1 S2 Gastrointestinal (Abdomen): Abdomen is not distended, soft, non-tender to palpation, no guarding, no palpable hepatosplenomegaly, normal bowel sounds Musculoskeletal: No pedal edema Neurologic: Drowsy, limited exam Psychiatric: Limited due to drowsiness Cervical spinal stenosis with radiculopathy S/p C5-C7 anterior cervical discectomy and fusion today Check CBC and BMP tomorrow. Pain control and activity level per primary surgical team. Hold Xarelto for now until okay to resume per surgeon. Continue other home medications when patient is awake Agree with other plans as detailed by Shanta Peck PA-C History of Present Illness Reason for Consultation: post op med mgmt Attending Physician: Francisco Oates, DO History of Present Illness This is a 66yo F with a PMH of cervical stenosis, atrial fibrillation on Xarelto, hypertension, migraine headaches, anxiety, hyperlipidemia and other medical problems listed below who is POD#0 s/p anterior cervical discectomy with bilateral foraminotomies C5-C6 C6-C7. History of cervical spine surgery in May 2021 with removal of stimulator, decompression T10-S1 and fusion L3-S1 by Dr Oates. Patient groggy from anesthesia following surgery so ROS limited. Denies pain. No fever, chills, CP or abdominal pain. No focal weakness. Allergies Allergy/AdvReac Type Severity Reaction Status Date / Time No Known Allergies Allergy Verified 08/17/21 08:28 Home Medications Medication Instructions Recorded Confirmed Type atorvastatin 20 mg tablet (Lipitor) 20 mg PO PM 05/02/20 08/17/21 History calcium carb 300 mg-D3 800 1 tab PO QAM 05/02/20 08/17/21 History unit-mag ox 25 mg-copper plate lithographer 0.5 mg-antony-Zn tablet (Caltrate + D3 Plus Minerals) duloxetine 60 mg capsule,delayed 120 mg PO QAM 05/02/20 08/17/21 History release (Cymbalta) ferrous sulfate, dried 159 mg (45 65 mg PO BID 05/02/20 08/17/21 History mg iron) tablet,extended release (iron ER) gabapentin 300 mg capsule 300 mg PO TID 05/02/20 08/17/21 History lorazepam 0.5 mg tablet (Ativan) 0.5 mg PO DAILY PRN 05/02/20 08/17/21 History magnesium 250 mg tablet 500 mg PO BID 05/02/20 08/17/21 History multivitamin 1 tab PO QAM 05/02/20 08/17/21 History rivaroxaban 20 mg tablet (Xarelto) 20 mg PO PM 05/02/20 08/17/21 History sumatriptan succinate 100 mg 100 mg PO UD PRN 05/02/20 08/17/21 History tablet (Imitrex) tizanidine 4 mg tablet (Zanaflex) 4 mg PO TID 05/02/20 08/17/21 History vitamin B complex 100 tab PO BID 05/02/20 08/17/21 History zolpidem 10 mg tablet (Ambien) 10 mg PO HS 05/02/20 08/17/21 History diltiazem HCl 240 mg capsule,24 300 mg PO QAM 11/28/20 08/17/21 History hr,extended release hydroxychloroquine 200 mg tablet 200 mg PO QAM 07/27/21 08/17/21 History pantoprazole 40 mg tablet,delayed 40 mg PO BID 07/27/21 08/17/21 History release (Protonix) Patient History Medical History (Updated 08/17/21 @ 15:36 by Shanta Peck PA-C) Anxiety Stable with med Atrial fibrillation Dx'ed 1994> follows with Dr. Valentino Brooke [facility]> Xarelto/Cardizem, no cardioversions - usually brought on by dehydration Chronic back pain Degenerative disc disease Fibromyalgia GERD (gastroesophageal reflux disease) Well controlled and stable GI bleed 04/2021 hospitalized in [place] for anemia, due to GI bleed from Xarelto-, states records were sent to Dr Cao [facility]- states had blood transfusion while was in hospital History of anesthesia reaction Pt states woke up from anesthesia w/ migraine after last procedure; states Imitrex is only thing that works for her History of COVID-19 - DEC 20, 2019 - 03/21/21-cough, runny nose, congestion, sneezing- no hospitalization Hyperlipidemia Hypertension Impaired fasting glucose Migraine On anticoagulant therapy Currently taking xarelto Osteoarthritis Post-operative hemorrhage Had ERCP and EUS [facility] on 11/15/20- started with dizziness on 11/18/20- admitted 11/21/20 to 11/24/20 found patient had internal bleeding - was transfused 11/21/20 while admitted- had EGD 11/22/20- bleeding had stopped/clotted. Rheumatoid arthritis Rheumatoid arthritis Surgical History Family history of reaction to anesthesia DAUGHTER>PONV Fusion of spine LUMBAR Gallstone REMOVED IN LIVER DUCT VIA EUS History of bilateral tubal ligation History of carpal tunnel release RT/LEFT History of cholecystectomy History of colonoscopy History of dilatation and curettage History of esophagogastroduodenoscopy (EGD) History of laparoscopy History of tooth extraction Hx of bladder repair surgery bladder sling Hx of thumb surgery left for arthritis Nausea and vomiting after administration of anesthetic agent Spinal cord stimulator status + REMOVAL; removed by dr oates may 2020 Family History Mother Diabetes Social History Smoking Status: Never smoker 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); Do You Dip or Chew Tobacco: No; Tobacco Cessation Education Requested by Patient: No Hx Alcohol Use: No Hx Substance Use: No Preferred Language: Persian Communication Ability: Effective Director Of Collections Required: No Beliefs That Will Affect Care: None Current Living Situation: Spouse Other Information That Helps Us Care for You: No Feels Safe at Home: Yes Safety Concerns: Feels Safe At This Time Assistive Devices: Walker Review of Systems Review of Systems: ROS limited due to lethargy. See HPI for details. Physical Exam Physical Exam: Please see Dr. Mars's addendum for physical exam. Results & Data Results & Data ([facility]) Vital Signs (Past 12 Hours) Vital Signs Temp Pulse Pulse Resp BP BP Pulse Ox 08/17/21 14:11 36.5 C 85 16 154/83 H 94 08/17/21 13:40 36.5 C 88 16 169/82 H 94 08/17/21 13:30 83 12 144/86 H 95 08/17/21 13:25 36.6 C 86 12 166/88 H 95 08/17/21 13:15 82 12 170/87 H 94 08/17/21 13:05 94 H 13 171/91 H 96 08/17/21 12:55 84 12 182/94 H 98 08/17/21 12:45 84 12 155/96 H 98 08/17/21 12:35 99 H 12 213/102 H 99 08/17/21 12:25 87 14 196/98 H 97 08/17/21 12:17 36.1 C L 88 12 174/88 H 99 08/17/21 08:50 37.7 C H 92 H 18 173/98 H 93 Pulse Ox 08/17/21 14:11 06/30/22 13:40 94 08/17/21 13:30 08/17/21 13:25 08/17/21 13:15 08/17/21 13:05 08/17/21 12:55 08/17/21 12:45 08/17/21 12:35 08/17/21 12:25 08/17/21 12:17 08/17/21 08:50
--- NOTE | 2021-08-17 15:38 | Communication Note ---
Date of Service: August 17, 2021 Patient seen and examined Patient still quite drowsy likely from anaesthesia. Hence patient not able to provide hx and ROS could not be performed On exam, General: Drowsy but awakens to touch and falls back to sleep Eyes: Conjunctivae normal, not pale, anicteric sclerae, EOM intact bilaterally ENMT: External ear and nose normal, oropharynx normal Neck: Neck collar in place with surgical site drain insitu Respiratory: Normal respiratory effort, no respiratory distress, lungs clear to auscultation, no crackles and no wheezes Cardiovascular: RRR S1 S2 Gastrointestinal (Abdomen): Abdomen is not distended, soft, non-tender to palpation, no guarding, no palpable hepatosplenomegaly, normal bowel sounds Musculoskeletal: No pedal edema Neurologic: Drowsy, limited exam Psychiatric: Limited due to drowsiness Cervical spinal stenosis with radiculopathy S/p C5-C7 anterior cervical discectomy and fusion today Check CBC and BMP tomorrow. Pain control and activity level per primary surgical team. Hold Xarelto for now until okay to resume per surgeon. Continue other home medications when patient is awake Agree with other plans as detailed by Shanta Peck PA-C
[2021-08-17] MEDS ORDERED: CHECK SCOPOLAMINE PATCH PLACEMENT SCH (16:00)
[2021-08-17] MEDS: ceFAZolin 2000MG 2,000 MG/15 ML SYR IV SCH (18:03)
[2021-08-17] MEDS ORDERED: ATORVASTATIN 20 MG TAB PO SCH (21:00)
[2021-08-17] MEDS ORDERED: ZOLPIDEM TARTRATE 10 MG TAB PO SCH (21:00)
[2021-08-17] MEDS ORDERED: DOCUSATE SODIUM/SENNA 50/8.6MG TAB PO SCH (21:00)
[2021-08-17] MEDS: VITAMIN B COMPLEX TAB PO SCH (21:42)
[2021-08-17] MEDS: MAGNESIUM OXIDE 400 MG TAB PO SCH (21:42)
[2021-08-17] MEDS: FERROUS SULFATE 325 MG TAB PO SCH (21:43)
[2021-08-17] MEDS: PANTOprazole 40 MG TAB PO SCH (21:45)
[2021-08-18] MEDS: ceFAZolin 2000MG 2,000 MG/15 ML SYR IV SCH (02:08)
[2021-08-18] MEDS: SODIUM CHLORIDE 0.9% 1000ML 1,000 ML IV SCH (04:07)
[2021-08-18] MEDS ORDERED: POLYETHYLENE (MIRALAX) 17 GM PACK PO SCH (06:00)
[2021-08-18] MEDS: VITAMIN B COMPLEX TAB PO SCH (07:19)
[2021-08-18] MEDS: MAGNESIUM OXIDE 400 MG TAB PO SCH (07:19)
[2021-08-18] MEDS: tiZANidine HCL 4 MG TABLET PO SCH (07:19)
[2021-08-18] MEDS: FERROUS SULFATE 325 MG TAB PO SCH (07:20)
[2021-08-18] MEDS: PANTOprazole 40 MG TAB PO SCH (07:20)
[2021-08-18] MEDS: GABAPENTIN 300 MG CAP PO SCH (07:20)
[2021-08-18] MEDS ORDERED: DULoxetine HCL 60 MG CAP PO SCH (09:00)
[2021-08-18] MEDS ORDERED: dexAMETHasone 6 MG in SYRINGE 0 ML IV SCH (09:00)
[2021-08-18] MEDS ORDERED: MULTIVITAMIN TAB PO SCH (09:00)
[2021-08-18] MEDS ORDERED: HYDROXYCHLOROQUINE SULFATE 200 MG TAB PO SCH (09:00)
[2021-08-18] MEDS ORDERED: dilTIAZem HCL 300 MG CAPCR PO SCH (09:00)
--- NOTE | 2021-08-18 10:04 | Discharge Summary ---
Date of Service August 18, 2021 Admission HPI Per Admitting Provider This is a 66-year-old female known to the resents chronic persistent neck and arm symptoms after failing course of nonoperative care she is here for surgical invention. Principal Diagnosis Cervical spinal stenosis with radiculopathy Discharge Data Allergies Allergy/AdvReac Type Severity Reaction Status Date / Time No Known Allergies Allergy Verified 08/17/21 08:28 Consultations 08/17/21 13:41 Consult Hospitalist Routine Procedures Performed Operation Date: 08/17/21 09:35 Actual Procedures p C5-C7 Anterior Cervical Discectomy and Fusion, Spinal Cord Monitoring(Not Applicable) - Francisco Oates DO Ordered Studies 08/17/21 09:35 FL cervical 2-3V Routine Hospital Course (1) Cervical stenosis of spinal canal: Patient went into her cervical discectomy and fusion tolerated this well was taken to orthopedic for possibly. Postop day 1 she was swallowing well. No hoarseness. Excellent strength testing. Pain well controlled. MILTON drain decreasing appropriately. Subsequently discharged home. Discharge orders instructions from the chart for further review. I have held her Xarelto as she may start this medication 1 week after surgery Total Time Total Time Spent Total Time Spent (In Minutes): 20 minutes Discharge Plan Discharge Items Patient Disposition: Home - Self-Care Reason For Visit: Spinal Stenosis, Cervical Region Discharge Diagnosis: Cervical spinal stenosis with radiculopathy Activity: As commented below Non-emergency contact: Primary Care Provider Call non-emergency contact if: you have any medication questions Follow-up/Referrals: Pari Freed DO [Primary Care Provider] - Diet: Regular Addtl Attending Provider Instructions: ACTIVITY RECOMMENDATIONS: SELF CARE INSTRUCTIONS AFTER CERVICAL FUSIONS 1. No smoking. Smoking drastically decreases the chance of a solid fusion. 2. No bending, lifting more than 5 pounds, or twisting (roll like a log when turning in bed). 3. You may shower 3 days after surgery. Thoroughly dry wound. Do not soak in the tub. 4. Cervical collar: Must be worn at all times including sleeping. You may remove the brace only to bath, eat and if you are sitting in a recliner. 5. Please walk as much as you can for exercise. Gradually increase the distance that you walk as your endurance increases. SPECIAL CARE INSTRUCTIONS: VERY IMPORTANT TO READ AND REVIEW A. Do not take any anti-inflammatory medications (i.e. Indocin, Advil, Aspirin, Naprosyn, Aleve, Motrin, etc.) as these may inhibit the chance of a solid fusion. Tylenol is okay to take. B. Your surgical incision has been closed with a cosmetic suture under the skin that will dissolve in about 6 weeks. In 14 days, you can use a pair of clean scissors and cut the suture that is left outside of the skin at the ends of your incision. C. Complications are uncommon, but please contact us if you have any signs or symptoms of: 1. wound infection (fever higher than 102.5 degrees F, redness, separation of wound, drainage, or increasing pain from the incision) 2. blood clots in legs (pain, swelling, redness and warmth in legs) 3. urinary tract infection (fever higher than 102.5 degrees, burning upon urination or increased frequency of urination) 4. nerve problems (inability to walk on your toes or heels, numbness, loss of bowel or bladder control) 5. any other symptoms that concern you. D. Please call the office at if you have any concerns or questions about your operation or recovery. MANAGING PAIN AFTER SPINAL SURGERY 1. Narcotic medication is intended for short-term use and will be provided for surgical pain. Surgical pain usually lasts for a period of 4-6 weeks. Narcotic medication includes Percocet, Vicodin, Darvocet, Tylenol #3 or Lortab. 2. Longer-term pain is more appropriately treated with non-narcotic medication such as Tylenol ES. 3. Muscle spasm is not appropriately treated with narcotics. Muscle relaxers such as Soma, Flexeril or Skelaxin can be used along with Tylenol ES. 4. Remember that we all live with some "aches and pains". This is not unusual or uncommon after an injury or as we get older. 5. We will provide appropriate medication within the normal guidelines of their prescribed use. We will also be very cautious and aware of potential abuse and extended duration of patients' medication needs. 6. Please allow 2-3 days to process refills. Prescriptions will not be mailed but must be picked up at the office. FOLLOW UP VISIT: Keep your scheduled follow-up appointment. Any questions, please call the office at . Pending Studies at Discharge: No Stand-Alone Forms: My [facility], Smoking Cessation Medications and DC Order Prescriptions: New tramadol 50 mg tablet 50 mg PO Q6H PRN (Reason: pain, moderate) Qty: 20 RF: 0 oxycodone 5 mg tablet 5 mg PO Q6H PRN (Reason: pain, severe) Qty: 20 RF: 0 Continued diltiazem HCl 240 mg Capsule,Extended Release 24 Hr 300 mg PO QAM RF: 0 pantoprazole [Protonix] 40 mg Tablet,Delayed Release (Dr/Ec) 40 mg PO BID RF: 0 hydroxychloroquine 200 mg Tablet 200 mg PO QAM RF: 0 multivitamin Tablet 1 tab PO QAM RF: 0 atorvastatin [Lipitor] 20 mg Tablet 20 mg PO PM RF: 0 tizanidine [Zanaflex] 4 mg Tablet 4 mg PO TID RF: 0 sumatriptan succinate [Imitrex] 100 mg Tablet 100 mg PO UD PRN (Reason: Migraine Headache) RF: 0 lorazepam [Ativan] 0.5 mg Tablet 0.5 mg PO DAILY PRN (Reason: Anxiety) RF: 0 gabapentin 300 mg Capsule 300 mg PO TID RF: 0 vitamin B complex Tablet 100 tab PO BID RF: 0 magnesium 250 mg Tablet 500 mg PO BID RF: 0 zolpidem [Ambien] 10 mg Tablet 10 mg PO HS RF: 0 duloxetine [Cymbalta] 60 mg Capsule,Delayed Release(Dr/Ec) 120 mg PO QAM RF: 0 iron 159 mg (45 mg iron) Tablet Extended Release 65 mg PO BID RF: 0 Caltrate + D3 Plus Minerals 300 mg-800 unit -25 mg-0.5 mg Tablet 1 tab PO QAM RF: 0 Discontinued Xarelto 20 mg Tablet 20 mg PO PM RF: 0 Discharge Orders: Discharge Order (Routine); Ordered 08/18/21 Ordered By: Francisco Oates Admission Data Admit Date/Time: 08/17/21 12:00 Attending Provider: Francisco Oates Admit Provider: Francisco Otaes Primary Care Provider: Pari Freed Other Providers: Marilyn Ortez
== END 2021-08-18 10:57 | disposition home or self-care (01) | DRG 473 ==
LOC: ASU 07:56 → 3E 12:00